=== PATIENT | male | born 1970 | race Caucasian/White ===

== ENCOUNTER 2016-04-23 12:33 | Emergency (ER) | payer SELFPAY ==
[2016-04-23] MEDS ORDERED: CLINDAMYCIN HCL 150 MG CAPSULE PO ONE (15:51)
--- NOTE | 2016-04-23 15:57 | ER Document Report ---
ED Skin Rash/Insect Bite/Abscs - General Chief Complaint: Rash Stated Complaint: POSSIBLE RASH Time seen by provider: 15:52 Mode of Arrival: Ambulatory Information source: Patient Notes: 45-year-old male presents to ED for a very bad skin rash to the abdomen bilateral sides and back a moderate rash to his legs and a mild rash to his arms. States he has had it for about 3 weeks TRAVEL OUTSIDE OF THE [place] IN LAST 30 DAYS: No - HPI Patient complains to provider of: Skin rash/lesion Onset: Other - 3 weeks Onset/Duration: Gradual, Worse Quality of pain: Other - Itches Severity: None Pain Level: Denies Skin Character: Rash Identify cause: No Exacerbated by: Denies Relieved by: Denies Similar symptoms previously: Yes Recently seen / treated by doctor: Yes - Related Data Allergies/Adverse Reactions: amoxicillin [Amoxicillin] Allergy (Verified 04/23/16 12:41) Penicillins Allergy (Verified 04/23/16 12:41) Past Medical History - General Information source: Patient - Social History Smoking Status: Former Smoker Cigarette use (# per day): No Chew tobacco use (# tins/day): No Frequency of alcohol use: None - 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 Drug Abuse: None Occupation: [employer] Lives with: Spouse/Significant other Family History: Arthritis, CAD, CVA, Hyperlipidemia, Hypertension, Malignancy - Past Medical History Cardiac Medical History: Reports: Hx Hypertension Pulmonary Medical History: Reports: None Denies: Hx Tuberculosis EENT Medical History: Reports: None Neurological Medical History: Reports: Hx Migraine Endocrine Medical History: Reports: None Renal/ Medical History: Reports: Hx Kidney Stones Malignancy Medical History: Reports None GI Medical History: Reports: Hx Gastroesophageal Reflux Disease Musculoskeltal Medical History: Reports Hx Musculoskeletal Trauma Skin Medical History: Reports Hx Cellulitis, Reports Hx MRSA Psychiatric Medical History: Reports: Hx Anxiety Traumatic Medical History: Reports: Hx Fractures Infectious Medical History: Reports: None Past Surgical History: Reports: Hx Cardiac Catheterization, Hx Oral Surgery - Jaw surgery, Hx Testicular Surgery. Denies: Hx Pacemaker - Immunizations Immunizations up to date: Yes Hx Diphtheria, Pertussis, Tetanus Vaccination: Yes Review of Systems - Review of Systems Constitutional: No symptoms reported EENT: No symptoms reported Cardiovascular: No symptoms reported Respiratory: No symptoms reported Gastrointestinal: No symptoms reported Genitourinary: No symptoms reported Male Genitourinary: No symptoms reported Musculoskeletal: No symptoms reported Skin: Rash Hematologic/Lymphatic: No symptoms reported Neurological/Psychological: No symptoms reported -: Yes All other systems reviewed and negative Physical Exam - Vital signs Vitals: Temp Pulse Resp BP Pulse Ox 97.9 F 84 20 147/103 H 95 04/23/16 12:43 04/23/16 12:43 04/23/16 12:43 04/23/16 12:43 04/23/16 12:43 Interpretation: Normal, Hypertensive - Blood pressure 147/103 has a history of blood pressure - General General appearance: Appears well, Alert - HEENT Head: Normocephalic, Atraumatic Eyes: Normal Pupils: PERRL - Respiratory Respiratory status: No respiratory distress Chest status: Nontender Breath sounds: Normal Chest palpation: Normal - Cardiovascular Rhythm: Regular Heart sounds: Normal auscultation Murmur: No - Abdominal Inspection: Normal Distension: No distension Bowel sounds: Normal Tenderness: Nontender Organomegaly: No organomegaly - Back Back: Normal, Nontender - Extremities General upper extremity: Normal inspection, Nontender, Normal color, Normal ROM , Normal temperature General lower extremity: Normal inspection, Nontender, Normal color, Normal ROM , Normal temperature, Normal weight bearing. No: David's sign - Neurological Neuro grossly intact: Yes Cognition: Normal Orientation: AAOx4 [place] Coma Scale Eye Opening: Spontaneous [place] Coma Scale Verbal: Oriented [place] Coma Scale Motor: Obeys Commands [place] Coma Scale Total: 15 Speech: Normal Motor strength normal: LUE, RUE, LLE, RLE Sensory: Normal - Psychological Associated symptoms: Normal affect, Normal mood - Skin Skin Temperature: Warm Skin Moisture: Dry Skin Color: Normal Location of irregularity: Abdomen, Chest, Back, Extremities Character of irregularity: Maculopapular, Vesicular, Erythematous, Urticarial Irregularity with: Tenderness Course - Vital Signs Vital signs: Temp Pulse Resp BP Pulse Ox 97.7 F 72 14 147/97 H 97 04/23/16 16:12 04/23/16 16:12 04/23/16 16:12 04/23/16 16:12 04/23/16 16:12 Discharge - Discharge Clinical Impression: Folliculitis Condition: Stable Disposition: HOME, SELF-CARE Instructions: Family Physicians / Practices Additional Instructions: Folliculitis You have a skin infection called folliculitis. This occurs when bacteria infect the hair follicles of the skin. Typically, redness and small pustules are found where hair shafts enter the skin. Allergy, surface irritation, shaving, and exposure to hot tubs predispose to folliculitis. The usual treatment is antibiotic ointment, sometimes combined with cortisone-type medication. Warm compresses are often used. If the infection has moved deeper into the skin, oral antibiotics may be necessary. To avoid future episodes of folliculitis, you must identify (if possible) the factors which allowed this infection to start. If you develop increasing pain, swelling, fever, or red streaks, call the doctor or return for re-evaluation. Clindamycin You have been given a prescription for the antibiotic clindamycin. It is often prescribed for infections in the mouth, such as dental infections or abscesses, and for skin infections due to MRSA. It's important that you take all the medication, unless instructed otherwise by your physician. Failure to complete the entire course can result in relapse of your condition. Common side effects of antibiotics include nausea, intestinal cramping, or diarrhea. Women may develop vaginal yeast infections, and babies can get yeast (thrush) in the mouth following the use of antibiotics. Contact your physician if you develop significant side effects from this medication. Allergy to this antibiotic can result in hives, wheezing, faintness, or itching. If symptoms of allergy occur, stop the medication and call the doctor. Soap Cleansing Gently wash the rash twice daily using a yellow Dial. Use warm water, rubbing gently until all debris, ooze, and crusting have been washed from the rash. Allow to dry briefly (about 10 minutes) after cleaning. Repeat this cleansing at least three times a day for the first two days and then once or twice a day. FOLLOW-UP CARE: If you have been referred to a physician for follow-up care, call the physician s office for an appointment as you were instructed or within the next two days. If you experience worsening or a significant change in your symptoms, notify the physician immediately or return to the Emergency Department at any time for re-evaluation. Please have your family doctor refer you to a desizing machine offbearer if this is not cleared up and about a week. I gave you list of local doctors if you do not have a family doctor. Prescriptions: Clindamycin HCl [Cleocin HCl] 300 mg PO QID 10 Days Forms: Elevated Blood Pressure, Return to Work
[2016-04-23 16:15] VITALS: BP 147/97
== END 2016-04-23 16:15 | disposition home or self-care (01) ==
LOC: ER 12:33
DX: L73.9 Follicular disorder, unspecified (principal); R21 Rash and other nonspecific skin eruption; Z87.891 Personal history of nicotine dependence
CPT/HCPCS: 99282

== ENCOUNTER 2016-05-01 11:57 | Emergency (ER) | payer SELFPAY ==
--- NOTE | 2016-05-01 12:16 | ER Document Report ---
ED Medical Screen (RME) - General Stated Complaint: BACK PAIN Time seen by provider: 12:15 Mode of Arrival: Ambulatory Information source: Patient Notes: 45-year-old male developed right sacroiliac area back pain without radiculopathy or saddle anesthesia last night. Movement makes it worse. No fever or chills. TRAVEL OUTSIDE OF THE [place] IN LAST 30 DAYS: No - Related Data Allergies/Adverse Reactions: amoxicillin [Amoxicillin] Allergy (Verified 05/01/16 12:13) Penicillins Allergy (Verified 05/01/16 12:13) Past Medical History - Past Medical History Cardiac Medical History: Reports: Hx Hypertension Pulmonary Medical History: Denies: Hx Tuberculosis Neurological Medical History: Reports: Hx Migraine Renal/ Medical History: Reports: Hx Kidney Stones GI Medical History: Reports: Hx Gastroesophageal Reflux Disease Musculoskeltal Medical History: Reports Hx Musculoskeletal Trauma Skin Medical History: Reports Hx Cellulitis, Reports Hx MRSA Psychiatric Medical History: Reports: Hx Anxiety Traumatic Medical History: Reports: Hx Fractures Past Surgical History: Reports: Hx Cardiac Catheterization, Hx Oral Surgery, Hx Testicular Surgery. Denies: Hx Pacemaker - Immunizations Immunizations up to date: Yes Hx Diphtheria, Pertussis, Tetanus Vaccination: Yes Physical Exam - Vital signs Vitals: Temp Pulse Resp BP Pulse Ox 97.7 F 66 18 163/109 H 97 05/01/16 12:00 05/01/16 12:00 05/01/16 12:00 05/01/16 12:00 05/01/16 12:00 Course - Vital Signs Vital signs: Temp Pulse Resp BP Pulse Ox 97.7 F 66 18 163/109 H 97 05/01/16 12:00 05/01/16 12:00 05/01/16 12:00 05/01/16 12:00 05/01/16 12:00
--- NOTE | 2016-05-01 12:43 | ER Document Report ---
ED General - General Chief Complaint: Low Back Pain Stated Complaint: BACK PAIN Time seen by provider: 12:41 Mode of Arrival: Ambulatory Notes: This is a 44-year-old male with a history of hypertension anxiety that presents today with low back pain. He states that last night around 2200. He walked home from a friend's house and was bending over to take off his shoes when he suddenly felt pain. Location is right lumbar area with no radiation 10 out of 10 with any movement. Denies nausea vomiting fever or chills. Patient denies bowel or bladder dysfunction. TRAVEL OUTSIDE OF THE [place] IN LAST 30 DAYS: No - Related Data Allergies/Adverse Reactions: amoxicillin [Amoxicillin] Allergy (Verified 05/01/16 12:13) Penicillins Allergy (Verified 05/01/16 12:13) Past Medical History - General Information source: Patient - Social History Smoking Status: Never Smoker Chew tobacco use (# tins/day): No Frequency of alcohol use: None Drug Abuse: None Family History: Arthritis, CAD, CVA, Hyperlipidemia, Hypertension, Malignancy Patient has suicidal ideation: No Patient has homicidal ideation: No - Past Medical History Cardiac Medical History: Reports: Hx Hypertension Pulmonary Medical History: Denies: Hx Tuberculosis Neurological Medical History: Reports: Hx Migraine Renal/ Medical History: Reports: Hx Kidney Stones GI Medical History: Reports: Hx Gastroesophageal Reflux Disease Musculoskeltal Medical History: Reports Hx Musculoskeletal Trauma Skin Medical History: Reports Hx Cellulitis, Reports Hx MRSA Psychiatric Medical History: Reports: Hx Anxiety Traumatic Medical History: Reports: Hx Fractures Past Surgical History: Reports: Hx Cardiac Catheterization, Hx Oral Surgery, Hx Testicular Surgery. Denies: Hx Pacemaker - Immunizations Immunizations up to date: Yes Hx Diphtheria, Pertussis, Tetanus Vaccination: Yes Review of Systems - Review of Systems Constitutional: denies: Chills, Fever EENT: denies: Blurred vision Cardiovascular: denies: Chest pain Genitourinary: Dysuria Musculoskeletal: See HPI Skin: No symptoms reported Hematologic/Lymphatic: No symptoms reported Neurological/Psychological: No symptoms reported Physical Exam - Vital signs Vitals: Temp Pulse Resp BP Pulse Ox 97.7 F 66 18 163/109 H 97 05/01/16 12:00 05/01/16 12:00 05/01/16 12:00 05/01/16 12:00 05/01/16 12:00 - General General appearance: Appears well, Alert - HEENT Head: Normocephalic, Atraumatic Eyes: Normal Conjunctiva: Normal - Respiratory Respiratory status: No respiratory distress Chest status: Nontender Breath sounds: Normal. No: Rales, Rhonchi, Stridor, Wheezing - Cardiovascular Rhythm: Regular Heart sounds: Normal auscultation - Abdominal Inspection: Normal Distension: No distension Bowel sounds: Normal Tenderness: Nontender - Back Back: Tender - Lumbar right paraspinal. No midline tenderness - Extremities General upper extremity: Normal inspection, Normal strength General lower extremity: Normal inspection - +2 dorsalis pedis bilaterally normal sensation bilaterally, Normal strength - Neurological Cognition: Normal. No: Confused - Psychological Associated symptoms: Normal affect, Normal mood - Skin Skin Temperature: Warm Skin Moisture: Dry Skin Color: Normal Course - Re-evaluation Re-evalutation: 05/01/16 13:03 Patient is given multiple opportunities to ask questions. X-ray images were shared with the patient. Patient stated that he would follow-up with primary care physician. Patient denied bowel or bladder dysfunction. - Vital Signs Vital signs: Temp Pulse Resp BP Pulse Ox 97.4 F 70 16 171/107 H 99 05/01/16 15:37 05/01/16 15:37 05/01/16 15:37 05/01/16 15:37 05/01/16 15:37 Discharge - Discharge Clinical Impression: Nephrolithiasis Back pain Qualifiers: Back pain location: low back pain Chronicity: acute Back pain laterality: right Sciatica presence: without sciatica Qualified Code(s): M54.5 - Low back pain Condition: Good Disposition: HOME, SELF-CARE Additional Instructions: Return to the emergency department if symptoms worsen. Follow-up with primary care physician. Prescriptions: Methocarbamol [Robaxin 750 mg Tablet] 750 mg PO Q6 PRN #10 tablet PRN Reason: Ondansetron [Zofran Odt 4 mg Tablet] 1 - 2 tab PO Q4H PRN #15 tab.rapdis PRN Reason: For Nausea/Vomiting Tamsulosin HCl [Flomax 0.4 mg Cap.sr] 0.4 mg PO DAILY #7 cap.sr.24h Referrals: [facility] [Provider Group] - Follow up as needed
[2016-05-01 14:52] LABS: APPEARANCE,URINE CLEAR; BILIRUBIN,URINE NEGATIVE (NEGATIVE); GLUCOSE, URINE NEGATIVE (NEGATIVE); KETONES,URINE NEGATIVE (NEGATIVE); LEUKOCYTE ESTERASE,URINE NEGATIVE (NEGATIVE); NITRITE,URINE NEGATIVE (NEGATIVE); PROTEIN,URINE NEGATIVE (NEGATIVE); URINE SPECIFIC GRAVITY 1.013; UROBILINOGEN,URINE NEGATIVE mg/dL (<2.0)
[2016-05-01 15:39] VITALS: BP 171/107
== END 2016-05-01 16:21 | disposition home or self-care (01) ==
LOC: ER 11:57
DX: N20.0 Calculus of kidney (principal); M54.5 Low back pain; R30.0 Dysuria; I10 Essential (primary) hypertension; Z88.0 Allergy status to penicillin; Z86.14 Personal history of Methicillin resistant Staphylococcus aureus infection
CPT/HCPCS: 72110; 81001; 99283

== ENCOUNTER 2016-07-18 21:06 | Emergency (ER) | payer OTHER ==
[2016-07-18] MEDS ORDERED: IBUPROFEN 800 MG TABLET PO ONE (22:32)
--- NOTE | 2016-07-18 22:32 | ER Document Report ---
ED Medical Screen (RME) - General Chief Complaint: Back Pain Stated Complaint: BACK PAIN Time seen by provider: 22:30 Mode of Arrival: Ambulatory Information source: Patient Notes: 46-year-old male presents to ED for pain between his shoulder blades. He states this started at work today when he was lifting a box of lettuce. He states while he was lifting the lettuce someone called him and he twisted causing his pain and his back. I have greeted and performed a rapid initial assessment of this patient. A comprehensive ED assessment and evaluation of the patient, analysis of test results and completion of medical decision making process will be conducted by an additional ED providers. TRAVEL OUTSIDE OF THE [place] IN LAST 30 DAYS: No - Related Data Allergies/Adverse Reactions: amoxicillin [Amoxicillin] Allergy (Verified 05/01/16 12:13) Penicillins Allergy (Verified 05/01/16 12:13) Past Medical History - Past Medical History Cardiac Medical History: Reports: Hx Hypertension Pulmonary Medical History: Denies: Hx Tuberculosis Neurological Medical History: Reports: Hx Migraine Renal/ Medical History: Reports: Hx Kidney Stones GI Medical History: Reports: Hx Gastroesophageal Reflux Disease Musculoskeltal Medical History: Reports Hx Musculoskeletal Trauma Skin Medical History: Reports Hx Cellulitis, Reports Hx MRSA Psychiatric Medical History: Reports: Hx Anxiety Traumatic Medical History: Reports: Hx Fractures Past Surgical History: Reports: Hx Cardiac Catheterization, Hx Oral Surgery, Hx Testicular Surgery. Denies: Hx Pacemaker - Immunizations Immunizations up to date: Yes Hx Diphtheria, Pertussis, Tetanus Vaccination: Yes Physical Exam - Vital signs Vitals: Temp Pulse Resp BP Pulse Ox 97.7 F 70 20 147/91 H 95 07/18/16 21:36 07/18/16 21:36 07/18/16 21:36 07/18/16 21:36 07/18/16 21:36 Course - Vital Signs Vital signs: Temp Pulse Resp BP Pulse Ox 97.7 F 70 20 147/91 H 95 07/18/16 21:36 07/18/16 21:36 07/18/16 21:36 07/18/16 21:36 07/18/16 21:36
[2016-07-19] MEDS ORDERED: CYCLOBENZAPRINE HCL 10 MG TABLET PO ONE ×2 (03:04→03:33)
--- NOTE | 2016-07-19 03:38 | ER Document Report ---
ED Medical Screen (RME) - General Mode of Arrival: Ambulatory TRAVEL OUTSIDE OF THE [place] IN LAST 30 DAYS: No - General Chief Complaint: Back Pain Stated Complaint: BACK PAIN Notes: Patient is a 46 DEPARTMENT complaining of back pain. Patient states that he was lifting a box on this for just his back and felt pain in between her shoulder blades. Patient admits to bilateral shoulder pain gets worse with movement. Has not taken anything for pain. Denies any urinary, stool incontinence, saddle anesthesia. Has been ambulatory since his accident. [facility] primary care History of hypertension. (ISABEL PARSON) - Related Data Allergies/Adverse Reactions: amoxicillin [Amoxicillin] Allergy (Verified 05/01/16 12:13) Penicillins Allergy (Verified 05/01/16 12:13) Past Medical History - Social History Chew tobacco use (# tins/day): No Frequency of alcohol use: None Drug Abuse: None - Past Medical History Cardiac Medical History: Reports: Hx Hypertension Pulmonary Medical History: Denies: Hx Tuberculosis Neurological Medical History: Reports: Hx Migraine Renal/ Medical History: Reports: Hx Kidney Stones. Denies: Hx Peritoneal Dialysis GI Medical History: Reports: Hx Gastroesophageal Reflux Disease Musculoskeltal Medical History: Reports Hx Musculoskeletal Trauma Skin Medical History: Reports Hx Cellulitis, Reports Hx MRSA Psychiatric Medical History: Reports: Hx Anxiety Traumatic Medical History: Reports: Hx Fractures Past Surgical History: Reports: Hx Cardiac Catheterization, Hx Oral Surgery, Hx Testicular Surgery. Denies: Hx Pacemaker - Immunizations Immunizations up to date: Yes Hx Diphtheria, Pertussis, Tetanus Vaccination: Yes Review of Systems - Review of Systems Musculoskeletal: See HPI -: Yes All other systems reviewed and negative Physical Exam - Back Back: Nontender. No: Deformity/step-off, CVA tenderness, Vertebra tenderness, Wounds - Extremities General upper extremity: Normal inspection, Nontender, Normal color, Normal ROM , Normal strength, Normal temperature General lower extremity: Normal inspection, Nontender, Normal color, Normal ROM , Normal strength, Normal temperature, Normal weight bearing. No: David's sign - Neurological Neuro grossly intact: Yes Cognition: Normal Orientation: AAOx4 [place] Coma Scale Eye Opening: Spontaneous [place] Coma Scale Verbal: Oriented [place] Coma Scale Motor: Obeys Commands [place] Coma Scale Total: 15 Motor strength normal: LUE, RUE, LLE, RLE Additional motor exam normals: Equal [employer]or [employer] Sensory: Normal - Skin Skin Temperature: Warm Skin Moisture: Dry Skin Color: Normal Skin Turgor: Elastic - Vital signs Vitals: Temp Pulse Resp BP Pulse Ox 97.7 F 70 20 147/91 H 95 07/18/16 21:36 07/18/16 21:36 07/18/16 21:36 07/18/16 21:36 07/18/16 21:36 - Extremities Notes: Pain to palpation of the bilateral trapezius muscles. (ISABEL PARSON) Course - Re-evaluation Re-evalutation: 07/19/16 03:34 Patient admits of muscle strain. Will treat with Motrin encouraged follow-up with primary care as needed. (ISABEL PARSON) - Vital Signs Vital signs: Temp Pulse Resp BP Pulse Ox 97.7 F 65 18 153/93 H 96 07/19/16 03:53 07/19/16 03:55 07/19/16 03:53 07/19/16 03:53 07/19/16 03:53 Doctor's Discharge - Discharge Clinical Impression: Muscle strain Condition: Good Disposition: HOME, SELF-CARE Instructions: Ice Packs ([facility]), Low Back Pain ([facility]), Muscle Strain ([facility]), Warm Packs ([facility]) Prescriptions: Cyclobenzaprine HCl [Flexeril 5 mg Tablet] 5 mg PO TID #6 tablet Ibuprofen [Motrin 600 Mg Tablet] 600 mg PO TID #15 tablet Forms: Elevated Blood Pressure Referrals: ANIRUDH COLE MD [ACTIVE STAFF] - Follow up as needed
[2016-07-19 03:57] VITALS: BP 153/93
== END 2016-07-19 03:58 | disposition home or self-care (01) ==
LOC: ER 21:06
DX: T14.8 Other injury of unspecified body region (principal); X50.0XXA Overexertion from strenuous movement or load, initial encounter; M25.511 Pain in right shoulder; M54.9 Dorsalgia, unspecified; Y99.0 Civilian activity done for income or pay; M25.512 Pain in left shoulder; I10 Essential (primary) hypertension; Z86.14 Personal history of Methicillin resistant Staphylococcus aureus infection; Z88.0 Allergy status to penicillin
CPT/HCPCS: 71020; 99283

== ENCOUNTER 2016-07-31 20:44 | Emergency (ER) | payer OTHER ==
[2016-07-31 21:06] VITALS: BP 162/108
== END 2016-08-01 02:36 | disposition left against medical advice (07) ==
LOC: ER 20:44
DX: Z53.9 Procedure and treatment not carried out, unspecified reason (principal); M25.562 Pain in left knee

== ENCOUNTER 2016-09-10 11:53 | Emergency (ER) | payer OTHER ==
[2016-09-10 12:04] VITALS: BP 169/100
[2016-09-10] MEDS ORDERED: IBUPROFEN 800 MG TABLET PO ONE (12:18)
[2016-09-10] MEDS ORDERED: MUPIROCIN 2% OINTMENT 22 GM TP ONE (12:18)
--- NOTE | 2016-09-10 12:22 | ER Document Report ---
ED Skin Rash/Insect Bite/Abscs - General Chief Complaint: Skin Problem Stated Complaint: POSSIBLE INSECT BITE RIGHT WRIST Time Seen by Provider: 09/10/16 12:10 Mode of Arrival: Ambulatory Information source: Patient Notes: She will female presents to ED for multiple open wounds to the right lateral wrist is noticed a day or so ago. He states he does not know if he had a bite or something in scratch that he does not remember. TRAVEL OUTSIDE OF THE [place] IN LAST 30 DAYS: No - HPI Patient complains to provider of: Other - Open infected areas to the right lateral wrist Onset: Other - A day or so Onset/Duration: Gradual Quality of pain: Burning Severity: Severe Pain Level: 5 Skin Character: Drainage, Erythema, Lesion, Tenderness Quality of rash: Painful Identify cause: No Exacerbated by: Movement Relieved by: Denies Similar symptoms previously: No Recently seen / treated by doctor: No - Related Data Allergies/Adverse Reactions: amoxicillin [Amoxicillin] Allergy (Verified 09/10/16 11:57) Penicillins Allergy (Verified 09/10/16 11:57) Past Medical History - General Information source: Patient - Social History Smoking Status: Never Smoker Cigarette use (# per day): No Chew tobacco use (# tins/day): No Smoking Education Provided: No Frequency of alcohol use: Rare Drug Abuse: None Occupation: [employer] Lives with: Alone Family History: Arthritis, CAD, COPD, CVA, Hyperlipidemia, Hypertension, Malignancy Patient has suicidal ideation: No Patient has homicidal ideation: No - Past Medical History Cardiac Medical History: Reports: Hx Coronary Artery Disease, Hx Hypertension Pulmonary Medical History: Reports: None EENT Medical History: Reports: None Neurological Medical History: Reports: Hx Migraine Endocrine Medical History: Reports: None Renal/ Medical History: Reports: Hx Kidney Stones Malignancy Medical History: Reports None GI Medical History: Reports: None, Hx Gastroesophageal Reflux Disease Musculoskeltal Medical History: Reports Hx Musculoskeletal Trauma Skin Medical History: Reports Hx Cellulitis, Reports Hx MRSA Psychiatric Medical History: Reports: Hx Anxiety Traumatic Medical History: Reports: Hx Fractures - Left arm Infectious Medical History: Reports: None Past Surgical History: Reports: Hx Cardiac Catheterization, Hx Oral Surgery, Hx Testicular Surgery - Immunizations Immunizations up to date: Yes Hx Diphtheria, Pertussis, Tetanus Vaccination: Yes Review of Systems - Review of Systems Constitutional: No symptoms reported EENT: No symptoms reported Cardiovascular: No symptoms reported Respiratory: No symptoms reported Gastrointestinal: No symptoms reported Genitourinary: No symptoms reported Male Genitourinary: No symptoms reported Musculoskeletal: No symptoms reported Skin: Lesions - Open draining honey crusted lesions Hematologic/Lymphatic: No symptoms reported Neurological/Psychological: No symptoms reported -: Yes All other systems reviewed and negative Physical Exam - Vital signs Vitals: Temp Pulse Resp BP Pulse Ox 99.3 F 98 20 169/100 H 95 09/10/16 12:02 09/10/16 12:02 09/10/16 12:02 09/10/16 12:02 09/10/16 12:02 Interpretation: Normal - General General appearance: Appears well, Alert - HEENT Head: Normocephalic, Atraumatic Eyes: Normal Pupils: PERRL - Respiratory Respiratory status: No respiratory distress Chest status: Nontender Breath sounds: Normal Chest palpation: Normal - Cardiovascular Rhythm: Regular Heart sounds: Normal auscultation Murmur: No - Abdominal Inspection: Normal Distension: No distension Bowel sounds: Normal Tenderness: Nontender Organomegaly: No organomegaly - Back Back: Normal, Nontender - Extremities General upper extremity: Normal inspection, Nontender, Normal color, Normal ROM , Normal temperature General lower extremity: Normal inspection, Nontender, Normal color, Normal ROM , Normal temperature, Normal weight bearing. No: David's sign - Neurological Neuro grossly intact: Yes Cognition: Normal Orientation: AAOx4 [place] Coma Scale Eye Opening: Spontaneous [place] Coma Scale Verbal: Oriented [place] Coma Scale Motor: Obeys Commands [place] Coma Scale Total: 15 Speech: Normal Motor strength normal: LUE, RUE, LLE, RLE Sensory: Normal - Psychological Associated symptoms: Normal affect, Normal mood - Skin Skin Temperature: Warm Skin Moisture: Dry Skin Color: Normal Irregularity with: Tenderness, Crusting - Open draining honey colored crusted lesions to the lateral right wrist Course - Vital Signs Vital signs: Temp Pulse Resp BP Pulse Ox 99.3 F 98 20 169/100 H 09/10/16 12:02 09/10/16 12:02 09/10/16 12:02 09/10/16 12:02 09/10/16 12:02 Discharge - Discharge Clinical Impression: Impetigo Disposition: HOME, SELF-CARE Instructions: Family Physicians / Practices, Use of [id number] Ibuprofen ([facility]) Additional Instructions: Impetigo You have a skin infection called impetigo. This infection is caused by germs growing between the skin layers. It spreads easily and is quite contagious. The usual treatment is with oral antibiotics, along with washing the sores and application of an antibiotic ointment. There's a new prescription antibiotic ointment which may allow some cases of impetigo to be treated without pills. Healing takes about a week. All involved areas should recover with no scarring. If there is significant worsening, or if new symptoms (such as dark urine, fever, chills, or red streaks) arise, call the doctor or return for re- examination. SOAP CLEANSING: Gently wash the wound daily using a mild soap (like Ivory, Phisoderm, Neutrogena). Use warm water, rubbing gently until all debris, ooze, and crusting have been washed from the wound. Allow to dry briefly (about 10 minutes) after cleaning. Repeat this cleansing at least three times a day for the first two days and then once or twice a day. ANTIBIOTIC OINTMENT PROTECTION: Your wounds are such that dressing them is not practical or optional. After cleansing, you should apply a thin coating of antibiotic ointment ( Bacitracin, not Neosporin) to the wounds at least three times daily. This lessens infection risk, and may decrease the amount of scarring. Use a q-tip or dull butter knife, not your finger, to apply this ointment. Any debris or ooze which builds up in the ointment should be gently rubbed off with a sterile gauze pad. Harder crusting may need to be gently scrubbed off with a clean wash cloth with soap and warm water, perhaps applying a warm, wet wash cloth to the wound for ten minutes first. Development of redness, severe itching, or blistering may mean allergy to the ointment. See the doctor. Bactroban Ointment Bactroban is very effective against the germs that cause infection within the skin. It's useful for impetigo and other superficial infections. Deeper infections require antibiotics by mouth or by shot. Apply the medicine three times a day for one week, or longer if your doctor has advised it. Stop the medicine and call your doctor if you develop large blisters, severe itching, increasing pain, swelling, fever, or spreading redness. FOLLOW-UP CARE: If you have been referred to a physician for follow-up care, call the physician s office for an appointment as you were instructed or within the next two days. If you experience worsening or a significant change in your symptoms, notify the physician immediately or return to the Emergency Department at any time for re-evaluation. Prescriptions: Mupirocin [Bactroban 2% Ointment 22 gm] 22 applic TP TID #1 tube Forms: Return to Work, Elevated Blood Pressure
== END 2016-09-10 12:41 | disposition home or self-care (01) ==
LOC: ER 11:53
DX: L01.00 Impetigo, unspecified (principal); I25.10 Atherosclerotic heart disease of native coronary artery without angina pectoris; I10 Essential (primary) hypertension; Z86.14 Personal history of Methicillin resistant Staphylococcus aureus infection; Z88.0 Allergy status to penicillin
CPT/HCPCS: 99283; J3490

== ENCOUNTER 2016-10-20 11:54 | Emergency (ER) | payer SELFPAY ==
--- NOTE | 2016-10-20 12:24 | ER Document Report ---
ED Medical Screen (RME) - General Chief Complaint: Flank Pain Stated Complaint: BACK PAIN Time Seen by Provider: 10/20/16 12:14 Notes: Patient says that he is having pain in his lower back for a few days and then yesterday, began having pain in the right hip. He has not vomited. Has had some diarrhea today. No blood present. Has a history of kidney stones and thinks that may be what is causing his pain. He has had lithotripsy for large stones in the past. Says his urine is yellow and dark on range. Denies fever. Denies abdominal pains. Patient had surgery for undescended testicles at about 7 years of age. History of hypertension, ran out of his lisinopril yesterday. TRAVEL OUTSIDE OF THE [place] IN LAST 30 DAYS: No - Related Data Allergies/Adverse Reactions: amoxicillin [Amoxicillin] Allergy (Verified 10/20/16 11:59) Penicillins Allergy (Verified 10/20/16 11:59) Past Medical History - Social History Chew tobacco use (# tins/day): No Frequency of alcohol use: Rare Drug Abuse: None - Past Medical History Cardiac Medical History: Reports: Hx Coronary Artery Disease, Hx Hypertension Pulmonary Medical History: Denies: Hx Tuberculosis Neurological Medical History: Reports: Hx Migraine Renal/ Medical History: Reports: Hx Kidney Stones. Denies: Hx Peritoneal Dialysis GI Medical History: Reports: Hx Gastroesophageal Reflux Disease Musculoskeltal Medical History: Reports Hx Musculoskeletal Trauma Skin Medical History: Reports Hx Cellulitis, Reports Hx MRSA Psychiatric Medical History: Reports: Hx Anxiety Traumatic Medical History: Reports: Hx Fractures Past Surgical History: Reports: Hx Cardiac Catheterization, Hx Oral Surgery, Hx Testicular Surgery. Denies: Hx Pacemaker - Immunizations Immunizations up to date: Yes Hx Diphtheria, Pertussis, Tetanus Vaccination: Yes Physical Exam - Vital signs Vitals: Temp Pulse Resp BP Pulse Ox 98.2 F 77 18 165/110 H 95 10/20/16 11:59 10/20/16 11:59 10/20/16 11:59 10/20/16 11:59 10/20/16 11:59 Course - Vital Signs Vital signs: Temp Pulse Resp BP Pulse Ox 98.2 F 77 18 165/110 H 95 10/20/16 11:59 10/20/16 11:59 10/20/16 11:59 10/20/16 11:59 10/20/16 11:59
[2016-10-20 13:01] LABS: ABSOLUTE BASOPHILS # (AUTO) 0.1 10^3/uL (0.0-0.2); ABSOLUTE EOSINOPHILS # (AUTO) 0.5 10^3/uL (0.0-0.6); ABSOLUTE LYMPHOCYTES (AUTO) 1.8 10^3/uL (0.5-4.7); ABSOLUTE MONOCYTES (AUTO) 0.6 10^3/uL (0.1-1.4); ABSOLUTE NEUT (AUTO) 5.3 10^3/uL (1.7-8.2); BASOPHILS % (AUTO) 0.7 % (0-2); EOSINOPHILS % (AUTO) 5.7 % (0-6); HEMOGLOBIN 13.8 g/dL (13.5-17.0); HGB HCT DIFFERENCE -0.6; LYMPHOCYTES % (AUTO) 22.4 % (13-45); MEAN CORPUSCULAR HEMOGLOBIN 27.8 pg (27.0-33.4); MEAN CORPUSCULAR HGB CONC 32.9 g/dL (32.0-36.0); MEAN CORPUSCULAR VOLUME 84 fl (80-97); MONOCYTES % (AUTO) 7.1 % (3-13); RED BLOOD COUNT 4.97 10^6/uL (4.35-5.55); SEGMENTED NEUTROPHILS % (AUTO) 64.1 % (42-78); WHITE BLOOD COUNT 8.2 10^3/uL (4.0-10.5)
[2016-10-20 13:03] LABS: APPEARANCE,URINE CLEAR; BILIRUBIN,URINE NEGATIVE (NEGATIVE); GLUCOSE, URINE NEGATIVE (NEGATIVE); KETONES,URINE NEGATIVE (NEGATIVE); LEUKOCYTE ESTERASE,URINE NEGATIVE (NEGATIVE); NITRITE,URINE NEGATIVE (NEGATIVE); PROTEIN,URINE NEGATIVE (NEGATIVE); URINE SPECIFIC GRAVITY 1.021; UROBILINOGEN,URINE NEGATIVE mg/dL (<2.0)
[2016-10-20] MEDS ORDERED: KETOROLAC TROMETHAMINE 60 MG/2 ML SDV IM ONE (13:05)
--- NOTE | 2016-10-20 13:07 | ER Document Report ---
ED General - General Chief Complaint: Flank Pain Stated Complaint: BACK PAIN Time Seen by Provider: 10/20/16 12:14 Mode of Arrival: Ambulatory Information source: Patient TRAVEL OUTSIDE OF THE [place] IN LAST 30 DAYS: No - HPI Patient complains to provider of: low back pain Onset: Other - 2-3 days Onset/Duration: Gradual Quality of pain: Achy Severity: Moderate Pain Level: 3 Associated symptoms: None Exacerbated by: Movement Relieved by: Denies Similar symptoms previously: Yes Recently seen / treated by doctor: No Notes: Patient is a 46-year-old male who presents to the emergency room complaining of low back pain has been bothering him for the past 2-3 days, he reports dark urine as well, with no dysuria, no vomiting, no fever but he did have some diarrhea without blood, patient reports a history of kidney stones with similar symptoms in the past, denies any injury or trauma - Related Data Allergies/Adverse Reactions: amoxicillin [Amoxicillin] Allergy (Verified 10/20/16 11:59) Penicillins Allergy (Verified 10/20/16 11:59) Past Medical History - General Information source: Patient - Social History Smoking Status: Never Smoker Chew tobacco use (# tins/day): No Frequency of alcohol use: Rare Drug Abuse: None Family History: Arthritis, CAD, CVA, Hyperlipidemia, Hypertension, Malignancy Patient has suicidal ideation: No Patient has homicidal ideation: No - Past Medical History Cardiac Medical History: Reports: Hx Coronary Artery Disease, Hx Hypertension Pulmonary Medical History: Denies: Hx Tuberculosis Neurological Medical History: Reports: Hx Migraine Renal/ Medical History: Reports: Hx Kidney Stones. Denies: Hx Peritoneal Dialysis GI Medical History: Reports: Hx Gastroesophageal Reflux Disease Musculoskeltal Medical History: Reports Hx Musculoskeletal Trauma Skin Medical History: Reports Hx Cellulitis, Reports Hx MRSA Psychiatric Medical History: Reports: Hx Anxiety Traumatic Medical History: Reports: Hx Fractures Past Surgical History: Reports: Hx Cardiac Catheterization, Hx Oral Surgery, Hx Testicular Surgery. Denies: Hx Pacemaker - Immunizations Immunizations up to date: Yes Hx Diphtheria, Pertussis, Tetanus Vaccination: Yes Review of Systems - Review of Systems Constitutional: No symptoms reported EENT: No symptoms reported Cardiovascular: No symptoms reported Respiratory: No symptoms reported Gastrointestinal: No symptoms reported Genitourinary: See HPI Male Genitourinary: No symptoms reported Musculoskeletal: See HPI Skin: No symptoms reported Hematologic/Lymphatic: No symptoms reported Neurological/Psychological: No symptoms reported -: Yes All other systems reviewed and negative Physical Exam - Vital signs Vitals: Temp Pulse Resp BP Pulse Ox 98.2 F 77 18 165/110 H 95 10/20/16 11:59 10/20/16 11:59 10/20/16 11:59 10/20/16 11:59 10/20/16 11:59 Interpretation: Normal - General General appearance: Appears well, Alert - HEENT Head: Normocephalic, Atraumatic Eyes: Normal Pupils: PERRL - Respiratory Respiratory status: No respiratory distress Chest status: Nontender Breath sounds: Normal Chest palpation: Normal - Cardiovascular Rhythm: Regular Heart sounds: Normal auscultation Murmur: No - Abdominal Inspection: Normal Distension: No distension Bowel sounds: Normal Tenderness: Nontender Organomegaly: No organomegaly - Back Back: Normal, Tender - Tenderness to palpate in lumbar paraspinal musculature - Extremities General upper extremity: Normal inspection, Nontender, Normal color, Normal ROM , Normal temperature General lower extremity: Normal inspection, Nontender, Normal color, Normal ROM , Normal temperature, Normal weight bearing. No: David's sign - Neurological Neuro grossly intact: Yes Cognition: Normal Orientation: AAOx4 [place] Coma Scale Eye Opening: Spontaneous [place] Coma Scale Verbal: Oriented [place] Coma Scale Motor: Obeys Commands [place] Coma Scale Total: 15 Speech: Normal Motor strength normal: LUE, RUE, LLE, RLE Sensory: Normal - Psychological Associated symptoms: Normal affect, Normal mood - Skin Skin Temperature: Warm Skin Moisture: Dry Skin Color: Normal Course - Re-evaluation Re-evalutation: 10/20/16 13:34 Laboratory findings were discussed with patient at bedside which are unremarkable, symptoms are consistent with low back pain, he was given a prescription for Naprosyn and advised to follow-up with a primary care provider or return if symptoms worsen, patient acknowledges understanding and agreement with this plan - Vital Signs Vital signs: Temp Pulse Resp BP Pulse Ox 98.2 F 77 18 165/110 H 95 10/20/16 11:59 10/20/16 11:59 10/20/16 11:59 10/20/16 11:59 10/20/16 11:59 - Laboratory Result Diagrams: 10/20/16 12:45 10/20/16 12:45 Laboratory results interpreted by me: 07/01/17 07/01/17 12:45 12:45 RDW 15.0 H Glucose 117 H Discharge - Discharge Clinical Impression: Low back pain Qualifiers: Chronicity: acute Back pain laterality: bilateral Sciatica presence: without sciatica Qualified Code(s): M54.5 - Low back pain Condition: Stable Disposition: HOME, SELF-CARE Instructions: Low Back Pain ([facility]) Additional Instructions: Follow up with your primary care provider in one to 2 days. Return to the emergency room immediately if symptoms worsen or any additional concerns. Prescriptions: Naproxen [Naprosyn 375 Mg Tablet] 375 mg PO BID #60 tablet Forms: Return to Work
[2016-10-20 13:16] LABS: ALANINE AMINOTRANSFERASE 29 U/L (21-72); ALBUMIN 3.8 g/dL (3.5-5.0); ALKALINE PHOSPHATASE 105 U/L (38-126); ANION GAP 12 (5-19); ASPARTATE AMINO TRANSFERASE 20 U/L (17-59); BILIRUBIN,DIRECT 0.3 mg/dL (0.0-0.4); BILIRUBIN,TOTAL 0.5 mg/dL (0.2-1.3); BLOOD UREA NITROGEN 12 mg/dL (7-20); CALCIUM 8.8 mg/dL (8.4-10.2); CARBON DIOXIDE 23 mmol/L (22-30); CHLORIDE 107 mmol/L (98-107); CREATININE RESULT 0.97 mg/dL (0.52-1.25); GLUCOSE 117 mg/dL (75-110); POTASSIUM 4.2 mmol/L (3.6-5.0); SODIUM 141.8 mmol/L (137-145); TOTAL PROTEIN 7.1 g/dL (6.3-8.2)
[2016-10-20 14:12] VITALS: BP 157/109
== END 2016-10-20 14:13 | disposition home or self-care (01) ==
LOC: ER 11:54
DX: M54.5 Low back pain (principal); R10.9 Unspecified abdominal pain; I25.10 Atherosclerotic heart disease of native coronary artery without angina pectoris; I10 Essential (primary) hypertension; Z88.0 Allergy status to penicillin; Z87.442 Personal history of urinary calculi; Z86.14 Personal history of Methicillin resistant Staphylococcus aureus infection
CPT/HCPCS: 99284; 96372; 36415; 83690; 85025; 80053; 81001; J1885

== ENCOUNTER 2016-12-30 15:23 | Emergency (ER) | payer OTHER ==
[2016-12-30] MEDS ORDERED: OXYCODONE-ACETAMINOPHEN 5-325 MG TABLET PO ONE (15:49)
--- NOTE | 2016-12-30 15:52 | ER Document Report ---
ED General - General Chief Complaint: Back Pain Stated Complaint: BACK INJURY Time Seen by Provider: 12/30/16 15:41 Notes: 46 yo male c/o pain to left back and ribs. 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 painful to deep breathe and move trunk. + shortness of breath due to the pain. no fever. no radiculopathy, paresthesia, bowel/bladder dysfunction. TRAVEL OUTSIDE OF THE [place] IN LAST 30 DAYS: No - HPI Onset/Duration: Sudden Quality of pain: Sharp Pain Level: 5 Associated symptoms: Shortness of breath Exacerbated by: Movement, Deep breathing Relieved by: Denies Similar symptoms previously: No Recently seen / treated by doctor: No - Related Data Allergies/Adverse Reactions: amoxicillin [Amoxicillin] Allergy (Verified 10/20/16 11:59) Penicillins Allergy (Verified 10/20/16 11:59) Past Medical History - General Information source: Patient - Social History Smoking Status: Never Smoker Chew tobacco use (# tins/day): No Frequency of alcohol use: None Drug Abuse: None Family History: Arthritis, CAD, CVA, Hyperlipidemia, Hypertension, Malignancy - Past Medical History Cardiac Medical History: Reports: Hx Coronary Artery Disease, Hx Hypertension Pulmonary Medical History: Denies: Hx Tuberculosis Neurological Medical History: Reports: Hx Migraine Renal/ Medical History: Reports: Hx Kidney Stones. Denies: Hx Peritoneal Dialysis GI Medical History: Reports: Hx Gastroesophageal Reflux Disease Musculoskeltal Medical History: Reports Hx Musculoskeletal Trauma Skin Medical History: Reports Hx Cellulitis, Reports Hx MRSA Psychiatric Medical History: Reports: Hx Anxiety Traumatic Medical History: Reports: Hx Fractures Past Surgical History: Reports: Hx Cardiac Catheterization, Hx Oral Surgery, Hx Testicular Surgery. Denies: Hx Pacemaker - Immunizations Immunizations up to date: Yes Hx Diphtheria, Pertussis, Tetanus Vaccination: Yes Review of Systems - Review of Systems Constitutional: No symptoms reported EENT: No symptoms reported Cardiovascular: No symptoms reported Respiratory: No symptoms reported Gastrointestinal: No symptoms reported Genitourinary: No symptoms reported Male Genitourinary: No symptoms reported Musculoskeletal: No symptoms reported Skin: No symptoms reported Hematologic/Lymphatic: No symptoms reported Neurological/Psychological: No symptoms reported -: Yes All other systems reviewed and negative Physical Exam - Vital signs Vitals: Temp Pulse Resp BP Pulse Ox 97.6 F 78 20 155/97 H 96 12/30/16 15:30 12/30/16 15:30 12/30/16 15:30 12/30/16 15:30 12/30/16 15:30 Interpretation: Normal - General General appearance: Appears well, Alert - HEENT Head: Normocephalic, Atraumatic Eyes: Normal Pupils: PERRL - Respiratory Respiratory status: No respiratory distress Chest status: Nontender Breath sounds: Normal Chest palpation: Normal - Cardiovascular Rhythm: Regular Heart sounds: Normal auscultation Murmur: No - Abdominal Inspection: Normal Distension: No distension Bowel sounds: Normal Tenderness: Nontender Organomegaly: No organomegaly - Back Back: Tender - focal tenderness left lateral chest wall - Extremities General upper extremity: Normal inspection, Nontender, Normal color, Normal ROM , Normal temperature General lower extremity: Normal inspection, Nontender, Normal color, Normal ROM , Normal temperature, Normal weight bearing. No: David's sign - Neurological Neuro grossly intact: Yes Cognition: Normal Orientation: AAOx4 [place] Coma Scale Eye Opening: Spontaneous [place] Coma Scale Verbal: Oriented [place] Coma Scale Motor: Obeys Commands [place] Coma Scale Total: 15 Speech: Normal Motor strength normal: LUE, RUE, LLE, RLE Sensory: Normal - Psychological Associated symptoms: Normal affect, Normal mood - Skin Skin Temperature: Warm Skin Moisture: Dry Skin Color: Normal Course - Re-evaluation Re-evalutation: 12/30/16 16:56 xray film and rad report reviewed. no pneumothorax or rib fracture. results reviewed with patient. will DC home with short RX pain medication, discussed importance of pulmonary toilet and deep breathing, and close follow up with primary care. pt agreeable with plan and stable for discharge - Vital Signs Vital signs: Temp Pulse Resp BP Pulse Ox 97.6 F 78 20 155/97 H 96 12/30/16 15:30 12/30/16 15:30 12/30/16 15:30 12/30/16 15:30 12/30/16 15:30 Discharge - Discharge Clinical Impression: Rib pain on left side Contusion of left chest wall Qualifiers: Encounter type: initial encounter Qualified Code(s): S20.212A - Contusion of left front wall of thorax, initial encounter Condition: Stable Disposition: HOME, SELF-CARE Instructions: Anti-Inflammatory Medication ([facility]), Chest Wall Pain ([facility]), Rib Contusion ([facility]), Oral Narcotic Medication ([facility]) Additional Instructions: Your xray is negative for collapsed lung or rib fracture I encourage you to breathe deep and cough when needed, breathe through the pain and avoid shallow breathing Take anti inflammatory medication and pain medication as prescribed Follow up with primary care for any fever, shortness of breath or cough Prescriptions: Ibuprofen [Motrin 800 Mg Tablet] 800 mg PO Q6H #20 tablet Oxycodone HCl/Acetaminophen [Percocet 5-325 mg Tablet] 1 - 2 tab PO ASDIR PRN # 15 tablet PRN Reason: Forms: Elevated Blood Pressure, Return to Work
--- NOTE | 2016-12-30 16:31 | RADIOLOGY REPORT (SQ) ---
EXAM DESCRIPTION: RIBS LEFT W/PA CHEST COMPLETED DATE/TIME: 12/30/2016 4:17 pm REASON FOR STUDY: fell onto left ribs, pain COMPARISON: None. TECHNIQUE: Frontal view of the chest and additional views of the left ribs acquired. NUMBER OF VIEWS: Four view. LIMITATIONS: None. FINDINGS: FRONTAL CXR: No pneumothorax. No pleural effusion. No atelectasis or infiltrates. RIBS: No displaced rib fractures. No lytic or blastic bony lesions. OTHER: No other significant finding. IMPRESSION: NO PNEUMOTHORAX. NO DISPLACED RIB FRACTURES. COMMENT: SITE OF TRAUMA/COMPLAINT MARKED/STAMP COMPLETED: NO. TECHNICAL DOCUMENTATION: JOB ID: [id number] [employer]- All Rights Reserved
[2016-12-30 17:07] VITALS: BP 165/95
== END 2016-12-30 17:07 | disposition home or self-care (01) ==
LOC: ER 15:23
DX: S20.212A Contusion of left front wall of thorax, initial encounter (principal); R07.81 Pleurodynia; M54.9 Dorsalgia, unspecified; R06.02 Shortness of breath; W19.XXXA Unspecified fall, initial encounter; Z88.0 Allergy status to penicillin; Z87.442 Personal history of urinary calculi; Z86.14 Personal history of Methicillin resistant Staphylococcus aureus infection
CPT/HCPCS: 99283

== ENCOUNTER 2017-03-28 09:24 | Emergency (ER) | payer OTHER ==
[2017-03-28] MEDS ORDERED: CYCLOBENZAPRINE HCL 10 MG TABLET PO ONE (09:54)
[2017-03-28 10:47] LABS: APPEARANCE,URINE CLEAR; BILIRUBIN,URINE NEGATIVE (NEGATIVE); GLUCOSE, URINE NEGATIVE (NEGATIVE); KETONES,URINE NEGATIVE (NEGATIVE); LEUKOCYTE ESTERASE,URINE NEGATIVE (NEGATIVE); NITRITE,URINE NEGATIVE (NEGATIVE); PROTEIN,URINE NEGATIVE (NEGATIVE); URINE SPECIFIC GRAVITY 1.021
--- NOTE | 2017-03-28 11:07 | ER Document Report ---
ED General - General Chief Complaint: Low Back Pain Stated Complaint: BACK PAIN Time Seen by Provider: 03/28/17 09:53 Mode of Arrival: Ambulatory Information source: Patient Notes: Patient is a 46-year-old male who presents to the ER today for right sided back pain 3 days, cough, runny nose 3 days and coughing up "streaks" of blood once today. Patient states that he has been coughing quite a bit and thinks that "I just irritated everything." He denies use of blood thinners. He admits to chronic back pain, but states that it hurts in a different way on the right side now. He denies any history of kidney stones or radiation of the pain anywhere else. He denies any loss of bladder or bowel function, numbness or tingling. He denies fever or chills that he is noticed. He denies shortness of breath or chest pain. TRAVEL OUTSIDE OF THE [place] IN LAST 30 DAYS: No - Related Data Allergies/Adverse Reactions: amoxicillin [Amoxicillin] Allergy (Verified 03/28/17 09:27) Penicillins Allergy (Verified 03/28/17 09:27) Past Medical History - General Information source: Patient - Social History Smoking Status: Never Smoker Chew tobacco use (# tins/day): No Frequency of alcohol use: None Drug Abuse: None Family History: Arthritis, CAD, CVA, Hyperlipidemia, Hypertension, Malignancy Patient has suicidal ideation: No Patient has homicidal ideation: No - Past Medical History Cardiac Medical History: Reports: Hx Coronary Artery Disease, Hx Hypertension Pulmonary Medical History: Denies: Hx Tuberculosis Neurological Medical History: Reports: Hx Migraine Renal/ Medical History: Reports: Hx Kidney Stones. Denies: Hx Peritoneal Dialysis GI Medical History: Reports: Hx Gastroesophageal Reflux Disease Musculoskeltal Medical History: Reports Hx Musculoskeletal Trauma Skin Medical History: Reports Hx Cellulitis, Reports Hx MRSA Psychiatric Medical History: Reports: Hx Anxiety Traumatic Medical History: Reports: Hx Fractures Past Surgical History: Reports: Hx Cardiac Catheterization, Hx Oral Surgery, Hx Testicular Surgery. Denies: Hx Pacemaker - Immunizations Immunizations up to date: Yes Hx Diphtheria, Pertussis, Tetanus Vaccination: Yes Review of Systems - Review of Systems Constitutional: No symptoms reported EENT: See HPI Cardiovascular: No symptoms reported Respiratory: See HPI Gastrointestinal: No symptoms reported Genitourinary: No symptoms reported Male Genitourinary: No symptoms reported Musculoskeletal: See HPI Skin: No symptoms reported Hematologic/Lymphatic: No symptoms reported Neurological/Psychological: No symptoms reported Physical Exam - Vital signs Vitals: Temp Pulse Resp BP Pulse Ox 98.2 F 96 16 176/98 H 93 03/28/17 09:29 03/28/17 09:29 03/28/17 09:29 03/28/17 09:29 03/28/17 09:29 - Notes Notes: PHYSICAL EXAMINATION: GENERAL: Well-appearing and in no acute distress. HEAD: Atraumatic, normocephalic. EYES: Pupils equal round and reactive to light, extraocular movements intact, sclera anicteric, conjunctiva are normal. ENT: ear canals without erythema or foreign body, TMs pearly luna with good bony landmarks, nares patent, oropharynx clear without exudates. Moist mucous membranes. NECK: Normal range of motion, supple without lymphadenopathy LUNGS: CTAB and equal. No wheezes rales or rhonchi. HEART: Regular rate and rhythm without murmurs ABDOMEN: Soft, no tenderness. No guarding, no rebound BACK: right lumbar tenderness, no vertebral tenderness, normal ROM GI/: no CVA tenderness EXTREMITIES: Normal range of motion, no pitting edema. No cyanosis. NEUROLOGICAL: Cranial nerves grossly intact. Normal sensory/motor exams. PSYCH: Normal mood, normal affect. SKIN: Warm, Dry, normal turgor, no rashes or lesions noted Course - Re-evaluation Re-evalutation: 03/28/17 11:05 Influenza and urinalysis negative. I will treat patient with muscle relaxers for his back pain and give him some cough medication. He has had no hemoptysis here. - Vital Signs Vital signs: Temp Pulse Resp BP Pulse Ox 98.2 F 96 16 176/98 H 93 03/28/17 09:29 03/28/17 09:29 03/28/17 09:29 03/28/17 09:29 03/28/17 09:29 - Laboratory Laboratory results interpreted by me: 03/28/17 10:16 Urine Urobilinogen 4.0 H Discharge - Discharge Clinical Impression: Cough Right low back pain Qualifiers: Chronicity: acute Sciatica presence: without sciatica Qualified Code(s): M54.5 - Low back pain Condition: Stable Disposition: HOME, SELF-CARE Instructions: Warm Packs ([facility]) Additional Instructions: Return immediately for any new or worsening symptoms. Follow up with primary care provider, call tomorrow to make followup appointment. Prescriptions: Hydrocodone Bit/Homatropine [Hycodan Syrup 5-1.5 mg/5 ml Ud Cup] 5 ml PO Q4HP PRN #120 ml PRN Reason: Cyclobenzaprine HCl [Flexeril 10 mg Tablet] 10 mg PO TIDP PRN #30 tab PRN Reason: Forms: Return to Work
[2017-03-28 11:36] VITALS: BP 176/119
== END 2017-03-28 11:35 | disposition home or self-care (01) ==
LOC: ER 09:24
DX: M54.5 Low back pain (principal); G89.29 Other chronic pain; R04.2 Hemoptysis; R09.89 Other specified symptoms and signs involving the circulatory and respiratory systems; I25.10 Atherosclerotic heart disease of native coronary artery without angina pectoris; I10 Essential (primary) hypertension; Z86.14 Personal history of Methicillin resistant Staphylococcus aureus infection; Z88.0 Allergy status to penicillin
CPT/HCPCS: 81001; 87804; 99283

== ENCOUNTER 2017-06-25 20:12 | Emergency (ER) | payer MEDICAID, OTHER ==
[2017-06-25 20:24] VITALS: BP 168/99
--- NOTE | 2017-06-25 22:03 | ER Document Report ---
ED Fall - General Chief Complaint: Fall Injury Stated Complaint: RT SIDE BACK/RIB PAIN Time Seen by Provider: 06/25/17 21:37 Mode of Arrival: Ambulatory Information source: Patient Notes: 47-year-old male presents to ED For complaint of right lateral rib pain. He states he was helping someone move and he fell down the stairs landing on his back. Patient refuses Tylenol or Motrin at this time. He is able to speak in full sentences walk with a steady even gait. Patient denies shortness of breath at this time. TRAVEL OUTSIDE OF THE [place] IN LAST 30 DAYS: No - HPI Occurred: Yesterday Where: Outdoors Context: Tripped, Fell from standing Associated symptoms: None Location of injury/pain: Other - Right lateral ribs Quality of pain: Sharp Severity: Severe Pain Level: 5 - Related data Allergies/Adverse Reactions: amoxicillin [Amoxicillin] Allergy (Verified 03/28/17 09:27) Penicillins Allergy (Verified 03/28/17 09:27) Past Medical History - General Information source: Patient - Social History Smoking Status: Never Smoker Cigarette use (# per day): No Chew tobacco use (# tins/day): No Smoking Education Provided: No Frequency of alcohol use: Occasional Drug Abuse: None Occupation: [employer] Lives with: Spouse/Significant other Family History: Arthritis, CAD, CVA, Hyperlipidemia, Hypertension, Malignancy. denies: COPD, DM, Thyroid Disfunction Patient has suicidal ideation: No Patient has homicidal ideation: No - Past Medical History Cardiac Medical History: Reports: Hx Hypertension Pulmonary Medical History: Reports: None EENT Medical History: Reports: None Neurological Medical History: Reports: None Endocrine Medical History: Reports: None Renal/ Medical History: Reports: Hx Kidney Stones Malignancy Medical History: Reports None GI Medical History: Reports: Hx Gastroesophageal Reflux Disease Musculoskeltal Medical History: Reports Hx Musculoskeletal Trauma Skin Medical History: Reports Hx Cellulitis, Reports Hx MRSA Psychiatric Medical History: Reports: Hx Anxiety, Hx Depression Traumatic Medical History: Reports: Hx Fractures - Arm, jaw Infectious Medical History: Reports: None Past Surgical History: Reports: Hx Cardiac Catheterization, Hx Oral Surgery - Fractured jaw plates in jaw, Hx Testicular Surgery - Immunizations Immunizations up to date: Yes Hx Diphtheria, Pertussis, Tetanus Vaccination: Yes Review of Systems - Review of Systems Notes: Constitutional: [PRESENT: as per HPI. ABSENT: chills, fever(s), headache(s), weight gain, weight loss] Eyes: [ABSENT: visual disturbances] Ears: [ABSENT: hearing changes] Cardiovascular: [ABSENT: chest pain, dyspnea on exertion, edema, orthropnea, palpitations] Respiratory: [ABSENT: cough, hemoptysis] pain with deep breaths to the right lateral ribs Gastrointestinal: [ABSENT: abdominal pain, constipation, diarrhea, hematemesis, hematochezia, nausea, vomiting] Genitourinary: [ABSENT: dysuria, hematuria] Musculoskeletal: Right lateral rib pain Integumentary: Bruising to right lateral rib area Neurological: [ABSENT: abnormal gait, abnormal speech, confusion, dizziness, focal weakness, syncope] Psychiatric: [ABSENT: anxiety, depression, homicidal ideation, suicidal ideation ] Endocrine: [ABSENT: cold intolerance, heat intolerance, menstrual abnormalities , polydipsia, polyuria] Hematologic/Lymphatic: [ABSENT: easy bleeding, easy bruising, lymphadenopathy] Physical Exam - Vital signs Vitals: Temp Pulse Resp BP Pulse Ox 97.7 F 72 20 168/99 H 98 06/25/17 20:22 06/25/17 20:22 06/25/17 20:22 06/25/17 20:22 06/25/17 20:22 - Notes Notes: PHYSICAL EXAMINATION: GENERAL: Well-appearing, well-nourished and in no acute distress. HEAD: Atraumatic, normocephalic. EYES: Pupils equal round and reactive to light, extraocular movements intact, sclera anicteric, conjunctiva are normal. ENT: Nares patent, oropharynx clear without exudates. Moist mucous membranes. NECK: Normal range of motion, supple without lymphadenopathy LUNGS: Breath sounds clear to auscultation bilaterally and equal. No wheezes rales or rhonchi. Pain with deep respiration to the right lateral ribs HEART: Regular rate and rhythm without murmurs ABDOMEN: Soft, nontender, nondistended abdomen. No guarding, no rebound. No masses appreciated. Musculoskeletal: Normal range of motion, no pitting or edema. No cyanosis. Pain to the right lateral ribs NEUROLOGICAL: Cranial nerves grossly intact. Normal speech, normal gait. Normal sensory, motor exams PSYCH: Normal mood, normal affect. SKIN: Warm, Dry, normal turgor, no rashes or lesions noted. Ecchymosis to the right lateral ribs area Course - Re-evaluation Re-evalutation: 06/25/17 23:53 Discussed x-rays with patient and written report of x-rays given to patient. Patient was discharged home with instructions for ice and warm packs to the area. He was also discharged home with a [place] dispense pack for the pain to the ribs. Patient was encouraged to take deep breaths frequently to prevent pneumonia from his rib contusions. There are no broken ribs. Patient was encouraged to follow-up with his primary doctor for his elevated blood pressures. He states he takes lisinopril and did take it tonight. - Vital Signs Vital signs: Temp Pulse Resp BP Pulse Ox 97.7 F 72 20 168/99 H 98 06/25/17 20:22 06/25/17 20:22 06/25/17 20:22 06/25/17 20:22 06/25/17 20:22 - Diagnostic Test Radiology reviewed: Image reviewed, Reports reviewed Discharge - Discharge Clinical Impression: Contusion of rib on right side Qualifiers: Encounter type: initial encounter Qualified Code(s): S20.211A - Contusion of right front wall of thorax, initial encounter HTN (hypertension) Qualifiers: Hypertension type: unspecified Qualified Code(s): I10 - Essential (primary) hypertension Condition: Stable Disposition: HOME, SELF-CARE Additional Instructions: Rib Contusion You have been diagnosed as having bruised ribs. It will usually take a few weeks for these injured ribs to heal. You should cough or take a deep breath at least every hour or two to prevent lung complications. You should not engage in any strenuous physical activity until released by your physician. The usual rule is "if it hurts, don' t do it." Return if you develop any of the following: (1) Fever or chills. (2) Persistent cough, coughing up blood, or shortness of breath. (3) Increasing pain. (4) Weakness, lightheadedness, or fainting. USE OF TYLENOL (ACETAMINOPHEN): Acetaminophen may be taken for pain relief or fever control. It's much safer than aspirin, offering a wider range of "safe" dosages. It is safe during . Some brand names are Tylenol, Panadol, Datril, Anacin 3, Tempra, and Liquiprin. Acetaminophen can be repeated every four hours. The following are maximum recommended dosages: WEIGHT Dose Drops Elixir Chewable( 80mg) (LBS.) drprs=droppers tsp=teaspoon 6 40 mg 0.4 ml (1/2) 6-11 80 mg 0.8 ml (full) tsp 1 tab 12-16 120 mg 1 1/2 drprs 3/4 tsp 1 1/2 tabs 17-23 160 mg 2 drprs 1 tsp 2 tabs 24-30 240 mg 3 drprs 1 1/2 tsp 3 tabs 30-35 320 mg 2 tsp 4 tabs 36-41 360 mg 2 1/4 tsp 4 1/2 tabs 42-47 400 mg 2 1/2 tsp 5 tabs 48-53 480 mg 3 tsp 6 tabs 54-59 520 mg 3 1/4 tsp 6 1/2 tabs 60-64 560 mg 3 1/2 tsp 7 tabs 65-70 600 mg 3 3/4 tsp 7 1/2 tabs 71-76 640 mg 4 tsp 8 tabs 77-82 720 mg 4 1/2 tsp 9 tabs 83-88 800 mg 5 tsp 10 tabs >89 pounds or adults 650 mg to 900 mg Acetaminophen can be repeated every four hours. Maximum dose not to exceed 4000 mg a day. These maximum recommended dosages are slightly higher than the dosages written on the product container, but these dosages are very safe and below the toxic dosage for acetaminophen. ICE PACKS: Apply ice packs frequently against the painful area. Many different schedules are recommended, such as "20 minutes on, 20 minutes off" or "one hour ice, two hours rest." If you need to work, you may need to go longer between ice treatments. You should plan to have the area ice packed AT LEAST one fourth of the time. The ice should be applied over the wrap, tape, or splint, or over a layer of cloth -- not directly against the skin. Some ice bags have a built-in cloth and can be put directly on the skin. WARM PACKS: After approximately two days, apply gentle heat (such as a heating pad or hot water bottle) for about 20 to 30 minutes about every two hours -- at least four times daily. Warmth and elevation will help you make a more rapid recovery , and will ease the pain considerably. Do not use HOT heat, and never apply heat for longer than 30 minutes. The continuous heat can invisibly damage skin and muscles -- even when no burn is seen on the surface. Damaged muscles can make you MORE sore. Oral Narcotic Medication You have been given a VISEO dispense pack for pain control. This medication is a narcotic. It's best taken with food, as nausea can result if taken on an empty stomach. Don't operate machinery or drive within six hours of taking this medication. Do not combine this medicine with alcohol, or with any medication which can cause sedation (such as cold tablets or sleeping pills) unless you get permission from the physician. Narcotics tend to cause constipation. If possible, drink plenty of fluids and eat a diet high in fiber and fruits. FOLLOW-UP CARE: If you have been referred to a physician for follow-up care, call the physician s office for an appointment as you were instructed or within the next two days. If you experience worsening or a significant change in your symptoms, notify the physician immediately or return to the Emergency Department at any time for re-evaluation. Forms: Elevated Blood Pressure, Return to Work
--- NOTE | 2017-06-25 23:43 | RADIOLOGY REPORT (SQ) ---
EXAM DESCRIPTION: RIBS RIGHT W/PA CHEST COMPLETED DATE/TIME: 06/25/2017 10:09 pm REASON FOR STUDY: Fall pain to right lateral ribs COMPARISON: None. TECHNIQUE: Frontal view of the chest and additional views of the right ribs acquired. NUMBER OF VIEWS: Three view. LIMITATIONS: None. FINDINGS: FRONTAL CXR: No pneumothorax. No pleural effusion. No atelectasis or infiltrates. RIBS: No displaced rib fractures. No lytic or blastic bony lesions. OTHER: No other significant finding. IMPRESSION: NO PNEUMOTHORAX. NO DISPLACED RIB FRACTURES. COMMENT: SITE OF TRAUMA/COMPLAINT MARKED/STAMP COMPLETED: Yes TECHNICAL DOCUMENTATION: JOB ID: [id number] [place]-72 2010 [employer]- All Rights Reserved Reading location - IP/workstation name: [email or web address]
[2017-06-25] MEDS ORDERED: HYDROCODONE/ACETAMINOPHEN 5-325 MG (6 TAB/ER DISP) PO PRN (23:51)
== END 2017-06-26 00:08 | disposition home or self-care (01) ==
LOC: ER 20:12
DX: S20.211A Contusion of right front wall of thorax, initial encounter (principal); I10 Essential (primary) hypertension; M54.9 Dorsalgia, unspecified; R07.81 Pleurodynia; W10.9XXA Fall (on) (from) unspecified stairs and steps, initial encounter
CPT/HCPCS: 99283

== ENCOUNTER 2017-07-02 13:50 | Emergency (ER) | payer SELFPAY ==
[2017-07-02 13:59] VITALS: BP 173/97
--- NOTE | 2017-07-02 14:53 | ER Document Report ---
HPI - HPI Patient complains to provider of: back pain Onset: Last week Onset/Duration: Persistent Quality of pain: Achy Pain Level: 5 Context: Patient states that he was helping a friend move and lost his balance hitting his ribs on a rail. Patient complains of continued rib tenderness. Patient does report mild cough. Patient denies any urinary symptoms. Patient also states he has a history of hypertension but ran out of his blood pressure medicine 1 week ago. Patient denies any abdominal pain, chest pain or headache. Associated Symptoms: Nonproductive cough, Other - right posterior rib pain. denies: Productive cough, Drooling, Headache, Vomiting Exacerbated by: Movement Relieved by: Denies Similar symptoms previously: Yes Recently seen / treated by doctor: Yes - ROS ROS below otherwise negative: Yes Systems Reviewed and Negative: Yes All other systems reviewed and negative - CONSTITUTIONAL Constitutional: DENIES: Fever, Chills - EENT EENT: DENIES: Sore Throat, Ear Pain, Eye problems - NEURO Neurology: DENIES: Headache, Weakness, Vision blurred, Dizzinesss / Vertigo - CARDIOVASCULAR Cardiovascular: DENIES: Chest pain - RESPIRATORY Respiratory: REPORTS: Coughing. DENIES: Trouble Breathing - GASTROINTESTINAL Gastrointestinal: DENIES: Abdominal Pain, Nausea, Patient vomiting, Black / Bloody Stools - URINARY Urinary: DENIES: Dysuria, Urgency, Frequency - MUSCULOSKELETAL Musculoskeletal: REPORTS: Back Pain. 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 denies: COPD, DM, Thyroid Disfunction Patient has suicidal ideation: No Patient has homicidal ideation: No - Past Medical History Cardiac Medical History: Reports: Hx Hypertension Pulmonary Medical History: Denies: Hx Tuberculosis Neurological Medical History: Reports: Hx Migraine Renal/ Medical History: Reports: Hx Kidney Stones. Denies: Hx Peritoneal Dialysis GI Medical History: Reports: Hx Gastroesophageal Reflux Disease Musculoskeltal Medical History: Reports Hx Musculoskeletal Trauma Skin Medical History: Reports Hx Cellulitis, Reports Hx MRSA Psychiatric Medical History: Reports: Hx Anxiety, Hx Depression Traumatic Medical History: Reports: Hx Fractures - Arm, jaw Past Surgical History: Reports: Hx Cardiac Catheterization, Hx Oral Surgery - Fractured jaw plates in jaw, Hx Testicular Surgery - Immunizations Immunizations up to date: Yes Hx Diphtheria, Pertussis, Tetanus Vaccination: Yes Vertical Provider Document - CONSTITUTIONAL Agree With Documented VS: Yes Exam Limitations: No Limitations General Appearance: WD/WN, No Apparent Distress - INFECTION CONTROL TRAVEL OUTSIDE OF THE [place] IN LAST 30 DAYS: No - HEENT HEENT: Atraumatic, Normocephalic - NECK Neck: Normal Inspection, Supple - RESPIRATORY Respiratory: Breath Sounds Normal, No Respiratory Distress. negative: Rales, Rhonchi, Wheezing O2 Sat by Pulse Oximetry: 93 - CARDIOVASCULAR Cardiovascular: Regular Rate, Regular Rhythm - GI/ABDOMEN Gastrointestinal: Abdomen Soft - BACK Back: Abnormal Inspection - Right lower thoracic rib tenderness, no subcutaneous emphysema, no crepitus, no ecchymosis. - MUSCULOSKELETAL/EXTREMETIES Musculoskeletal/Extremeties: YANETH AGUILAR - NEURO Level of Consciousness: Awake, Alert, Appropriate Motor/Sensory: No Motor Deficit - DERM Integumentary: Warm, Dry, No Rash Course - Re-evaluation Re-evalutation: 07/02/17 15:40 Controlled substance database reviewed. The patient presents with low back pain without signs of spinal cord compression, cauda equina syndrome, infection , aneurysm, or other serious etiology. The patient is neurologically intact. Given the extremely risk of these diagnoses further testing and evaluation for these possibilities does not appear to be indicated at this time. Patient has been instructed to return if the symptoms worsen or change in any way. - Vital Signs Vital signs: Temp Pulse Resp BP Pulse Ox 97.6 F 72 22 H 173/97 H 93 07/02/17 13:54 07/02/17 13:54 07/02/17 13:54 07/02/17 13:54 07/02/17 13:54 - Diagnostic Test Radiology reviewed: Image reviewed, Reports reviewed Discharge - Discharge Clinical Impression: Rib pain on right side HTN (hypertension) Qualifiers: Hypertension type: unspecified Qualified Code(s): I10 - Essential (primary) hypertension Condition: Stable Disposition: HOME, SELF-CARE Instructions: Chest Wall Pain ([facility]), High Blood Pressure, Requiring Treatment ( [facility]), Muscle Strain ([facility]) Additional Instructions: Return immediately for any new or worsening symptoms Followup with your primary care provider, call tomorrow to make a followup appointment Follow-up with a primary doctor to refill your blood pressure medications Prescriptions: Cyclobenzaprine HCl [Flexeril 10 Mg Tablet] 10 mg PO TID #15 tablet Lisinopril 10 mg PO DAILY #10 tablet Forms: Elevated Blood Pressure, Return to Work Referrals: [facility] [Provider Group] - Follow up as needed [facility] [Provider Group] - Follow up as needed
[2017-07-02] MEDS ORDERED: ACETAMINOPHEN 325 MG TABLET PO ONE (14:54)
[2017-07-02] MEDS ORDERED: LISINOPRIL 10 MG TABLET PO ONE (14:56)
--- NOTE | 2017-07-02 15:25 | RADIOLOGY REPORT (SQ) ---
EXAM DESCRIPTION: CHEST PA/LAT COMPLETED DATE/TIME: 07/02/2017 3:09 pm REASON FOR STUDY: cough, rib pain COMPARISON: 07/18/2016 EXAM PARAMETERS: NUMBER OF VIEWS: two views TECHNIQUE: Digital Frontal and Lateral radiographic views of the chest acquired. RADIATION DOSE: NA LIMITATIONS: none FINDINGS: LUNGS AND PLEURA: No opacities, masses or pneumothorax. No pleural effusion. MEDIASTINUM AND HILAR STRUCTURES: No masses or contour abnormalities. HEART AND VASCULAR STRUCTURES: Heart normal size. No evidence for failure. BONES: No acute findings. HARDWARE: None in the chest. OTHER: No other significant finding. IMPRESSION: NO SIGNIFICANT RADIOGRAPHIC FINDING IN THE CHEST. TECHNICAL DOCUMENTATION: JOB ID: [id number] [employer]- All Rights Reserved Reading location - IP/workstation name: [email or web address]
[2017-07-02] MEDS ORDERED: LIDOCAINE 5% (700 MG) TRANSDERMAL ADH..PATCH TP ONE (15:40)
== END 2017-07-02 16:08 | disposition home or self-care (01) ==
LOC: ER 13:50
DX: R07.81 Pleurodynia (principal); W22.8XXA Striking against or struck by other objects, initial encounter; R05 Cough; I10 Essential (primary) hypertension
CPT/HCPCS: 71046; 99283

== ENCOUNTER 2017-11-25 21:58 | Emergency (ER) | payer SELFPAY ==
[2017-11-25] MEDS ORDERED: ASPIRIN 81 MG TABLET, CHEWABLE PO ONE (23:07)
--- NOTE | 2017-11-25 23:13 | ER Document Report ---
ED Medical Screen (RME) - General Chief Complaint: Legs swelling/ pain in calf; L wrist pain s/p fall Stated Complaint: SWELLING IN FEET AND LEGS Time Seen by Provider: 11/25/17 22:54 Mode of Arrival: Wheelchair Information source: Patient Notes: Patient is a 47-year-old male who presents with multiple complaints today. Patient reports bilateral lower extremity swelling, worse to the right side 1 week. Patient has associated shortness of breath and sharp pains to the entire right side of his body from his arm down his torso into his leg. Patient reports that the sharp body pains have been ongoing for approximately 30 days. Patient also complains of left hand pain near the base of the first digit after suffering a fall several days ago. Patient reports that he is supposed to be taking lisinopril 40 mg twice daily and HCTZ 12.5 mg twice daily and reports that he has not been taking this as prescribed. Exam: Cap refill less than 3 seconds to bilateral lower extremities Dorsalis pedis pulses present Edema noted to patient's bilateral lower extremities, increased to right. I have greeted and performed a rapid initial assessment of this patient. A comprehensive ED assessment and evaluation of the patient, analysis of test results and completion of the medical decision making process will be conducted by additional ED providers. Dictation of this chart was performed using voice recognition software; therefore, there may be some unintended grammatical errors. TRAVEL OUTSIDE OF THE [place] IN LAST 30 DAYS: No - Related Data Allergies/Adverse Reactions: amoxicillin [Amoxicillin] Allergy (Verified 07/02/17 13:54) Penicillins Allergy (Verified 07/02/17 13:54) Past Medical History - Social History Frequency of alcohol use: Occasional Drug Abuse: None - Past Medical History Cardiac Medical History: Reports: Hx Hypertension Pulmonary Medical History: Denies: Hx Tuberculosis Neurological Medical History: Reports: Hx Migraine Renal/ Medical History: Reports: Hx Kidney Stones. Denies: Hx Peritoneal Dialysis GI Medical History: Reports: Hx Gastroesophageal Reflux Disease Musculoskeltal Medical History: Reports Hx Musculoskeletal Trauma Skin Medical History: Reports Hx Cellulitis, Reports Hx MRSA Psychiatric Medical History: Reports: Hx Anxiety, Hx Depression Traumatic Medical History: Reports: Hx Fractures - Arm, jaw Past Surgical History: Reports: Hx Cardiac Catheterization, Hx Oral Surgery - Fractured jaw plates in jaw, Hx Testicular Surgery - Immunizations Immunizations up to date: Yes Hx Diphtheria, Pertussis, Tetanus Vaccination: Yes
--- NOTE | 2017-11-25 23:29 | RADIOLOGY REPORT (SQ) ---
EXAM DESCRIPTION: XR HAND 3 OR MORE VIEWS COMPLETED DATE/TME: 11/25/2017 23:06 CLINICAL HISTORY: 47 years Male, pain near base of 1st digit COMPARISON: 12/17/2015 Findings: Moderate osteoarthritis of the first carpometacarpal joint. 0.3 cm ossicular calcification at the dorsal aspect of the radiocarpal joint seen on one view.. 0.3 cm triangular fragment anterior to the left first metacarpal base on one view. Bones, joints, and soft tissues of the LEFT XR HAND 3 VIEWS appear otherwise intact. IMPRESSION: 0.3 cm triangular fragment/calcification anterior to the left first metacarpal base on one view, indeterminate age.
--- NOTE | 2017-11-25 23:29 | RADIOLOGY REPORT (SQ) ---
EXAM DESCRIPTION: XR CHEST 1 VIEW COMPLETED DATE/TME: 11/25/2017 23:08 CLINICAL HISTORY: sob COMPARISON: 07/02/2017 FINDINGS: Single frontal view of the chest. Tortuosity of the thoracic aorta. Heart is not enlarged. Unchanged left midlung discoid atelectasis. No consolidation, large effusion, or pneumothorax. No acute osseous abnormalities. Upper abdominal soft tissues are unremarkable. IMPRESSION: 1. No acute pulmonary process identified.
[2017-11-26 00:04] LABS: ABSOLUTE BASOPHILS # (AUTO) 0.1 10^3/uL (0.0-0.2); ABSOLUTE EOSINOPHILS # (AUTO) 0.2 10^3/uL (0.0-0.6); ABSOLUTE LYMPHOCYTES (AUTO) 2.1 10^3/uL (0.5-4.7); ABSOLUTE MONOCYTES (AUTO) 0.8 10^3/uL (0.1-1.4); ABSOLUTE NEUT (AUTO) 5.5 10^3/uL (1.7-8.2); EOSINOPHILS % (AUTO) 2.7 % (0-6); HEMATOCRIT 42.9 % (37.9-51.0); HEMOGLOBIN 14.4 g/dL (13.5-17.0); MEAN CORPUSCULAR HEMOGLOBIN 28.4 pg (27.0-33.4); MEAN CORPUSCULAR HGB CONC 33.7 g/dL (32.0-36.0); MEAN CORPUSCULAR VOLUME 84 fl (80-97); PLATELET COUNT 299 10^3/uL (150-450); RED BLOOD COUNT 5.09 10^6/uL (4.35-5.55); SEGMENTED NEUTROPHILS % (AUTO) 63.3 % (42-78); TOTAL CELLS COUNTED % (AUTO) 100 %; WHITE BLOOD COUNT 8.6 10^3/uL (4.0-10.5)
[2017-11-26 00:27] LABS: ALANINE AMINOTRANSFERASE 57 U/L (21-72); ALBUMIN 4.1 g/dL (3.5-5.0); ALKALINE PHOSPHATASE 79 U/L (38-126); ANION GAP 13 (5-19); ASPARTATE AMINO TRANSFERASE 36 U/L (17-59); BILIRUBIN,DIRECT 0.3 mg/dL (0.0-0.4); BILIRUBIN,TOTAL 0.5 mg/dL (0.2-1.3); BLOOD UREA NITROGEN 11 mg/dL (7-20); CALCIUM 8.9 mg/dL (8.4-10.2); CARBON DIOXIDE 23 mmol/L (22-30); CHLORIDE 109 mmol/L (98-107); CREATINE KINASE 173 U/L (55-170); GLUCOSE 102 mg/dL (75-110); POTASSIUM 4.3 mmol/L (3.6-5.0); SODIUM 144.9 mmol/L (137-145); TOTAL PROTEIN 7.2 g/dL (6.3-8.2)
[2017-11-26 00:37] LABS: CREATINE KINASE MB 1.61 ng/mL (<4.55); NT PRO BNP 230 pg/mL (<125)
[2017-11-26 00:38] LABS: TROPONIN I < 0.012 ng/mL
[2017-11-26 01:58] LABS: APPEARANCE,URINE SLIGHTLY-CLOUDY; BILIRUBIN,URINE NEGATIVE (NEGATIVE); COLOR,URINE YELLOW; GLUCOSE, URINE NEGATIVE (NEGATIVE); KETONES,URINE NEGATIVE (NEGATIVE); LEUKOCYTE ESTERASE,URINE TRACE (NEGATIVE); NITRITE,URINE NEGATIVE (NEGATIVE); PROTEIN,URINE NEGATIVE (NEGATIVE); URIC ACID CRYSTALS,URINE RARE /HPF; URINE SPECIFIC GRAVITY 1.024; UROBILINOGEN,URINE NEGATIVE mg/dL (<2.0)
[2017-11-26] MEDS ORDERED: LISINOPRIL 10 MG TABLET PO ONE (03:10)
[2017-11-26] MEDS ORDERED: HYDROCHLOROTHIAZIDE 12.5 MG TABLET PO ONE (03:10)
--- NOTE | 2017-11-26 03:26 | ER Document Report ---
ED General - General Chief Complaint: Legs swelling/ pain in calf; L wrist pain s/p fall Stated Complaint: SWELLING IN FEET AND LEGS Time Seen by Provider: 11/25/17 22:54 Mode of Arrival: Wheelchair Notes: Patient is a 47-year-old male who presents with multiple complaints today. Patient reports bilateral lower extremity swelling, worse to the right side 1 week. Patient has associated shortness of breath and sharp pains to the entire right side of his body from his arm down his torso into his leg. Patient reports that the sharp body pains have been ongoing for approximately 30 days. Patient also complains of left hand pain near the base of the first digit after suffering a fall several days ago. Patient reports that he is supposed to be taking lisinopril 40 mg twice daily and HCTZ 12.5 mg twice daily and reports that he has not been taking this as prescribed. TRAVEL OUTSIDE OF THE [place] IN LAST 30 DAYS: No - Related Data Allergies/Adverse Reactions: amoxicillin [Amoxicillin] Allergy (Verified 07/02/17 13:54) Penicillins Allergy (Verified 07/02/17 13:54) Past Medical History - General Information source: Patient - Social History Smoking Status: Never Smoker Frequency of alcohol use: Occasional Drug Abuse: None Family History: Arthritis, CAD, CVA, Hyperlipidemia, Hypertension, Malignancy. denies: COPD, DM, Thyroid Disfunction Patient has suicidal ideation: No Patient has homicidal ideation: No - Past Medical History Cardiac Medical History: Reports: Hx Hypertension Pulmonary Medical History: Denies: Hx Tuberculosis Neurological Medical History: Reports: Hx Migraine Renal/ Medical History: Reports: Hx Kidney Stones. Denies: Hx Peritoneal Dialysis GI Medical History: Reports: Hx Gastroesophageal Reflux Disease Musculoskeletal Medical History: Reports Hx Musculoskeletal Trauma Skin Medical History: Reports Hx Cellulitis, Reports Hx MRSA Psychiatric Medical History: Reports: Hx Anxiety, Hx Depression Traumatic Medical History: Reports: Hx Fractures - Arm, jaw Past Surgical History: Reports: Hx Cardiac Catheterization, Hx Oral Surgery - Fractured jaw plates in jaw, Hx Testicular Surgery - Immunizations Immunizations up to date: Yes Hx Diphtheria, Pertussis, Tetanus Vaccination: Yes Review of Systems - Review of Systems Constitutional: See HPI EENT: No symptoms reported Cardiovascular: No symptoms reported Respiratory: No symptoms reported Gastrointestinal: No symptoms reported Genitourinary: No symptoms reported Male Genitourinary: No symptoms reported Musculoskeletal: See HPI Skin: No symptoms reported Hematologic/Lymphatic: No symptoms reported Neurological/Psychological: No symptoms reported Physical Exam - Vital signs Vitals: Temp Pulse Resp BP 97.9 F 87 18 181/120 H 11/25/17 22:05 11/25/17 22:05 11/25/17 22:05 11/25/17 22:05 - Notes Notes: PHYSICAL EXAMINATION: GENERAL: Well-appearing, well-nourished and in no acute distress. HEAD: Atraumatic, normocephalic. EYES: Pupils equal round and reactive to light, extraocular movements intact, sclera anicteric, conjunctiva are normal. ENT: Nares patent, oropharynx clear without exudates. Moist mucous membranes. NECK: Normal range of motion, supple without lymphadenopathy LUNGS: Breath sounds clear to auscultation bilaterally and equal. No wheezes rales or rhonchi. HEART: Regular rate and rhythm without murmurs ABDOMEN: Soft, nontender, nondistended abdomen. No guarding, no rebound. No masses appreciated. Musculoskeletal: Normal range of motion. No cyanosis. Nonpitting edema 1+ noted to patient's bilateral lower extremities. No swelling noted to patient's left hand. NEUROLOGICAL: Cranial nerves grossly intact. Normal speech, normal gait. Normal sensory, motor exams PSYCH: Normal mood, normal affect. SKIN: Warm, Dry, normal turgor, no rashes or lesions noted. Course - Re-evaluation Re-evalutation: Patient is a 47-year-old male who presents the emergency department today with multiple complaints, see HPI. Patient is hypertensive on arrival, reports he has not been taking his blood pressure medications lately. Patient is alert, oriented and nontoxic in appearance. Physical exam is unremarkable other than mild swelling to his bilateral lower extremities. CBC is unremarkable, CMP with mildly elevated CK at 173, BNP is 230. Troponin was negative. Urinalysis is unremarkable. EKG was performed, shows a sinus rhythm rate of 57, normal axis, no ST segment elevations or depressions. chest xray is negative with no cardiomegaly or exidence of CHF. Patient reports pain to his left hand although he is unsure if he had an injury, this pain has been going on for at least 2 weeks. Right hand x-ray reveals a 0.3 cm triangular fragment versus calcification anterior to the left first metacarpal. Will place patient in a thumb spica splint and refer to [facility] for follow-up. Patient 's blood pressure medications were ordered as he states he has not taken them for several months. Patient is requesting to leave the emergency department, patient reporting he has been here since approximately 9 PM. It is now 3:00. Patient is unwilling to stay to monitor his blood pressure to ensure that the blood pressure medications I gave him have reduced his blood pressure. Patient will be discharged at this time, patient given extensive instructions on blood pressure management and the need to have close follow-up with his primary care provider. Patient encouraged to return to the emergency department immediately if he develops any worsening symptoms, shortness of breath or chest pains. - Vital Signs Vital signs: Temp Pulse Resp BP Pulse Ox 97.6 F 69 20 184/108 H 96 11/26/17 03:08 11/26/17 03:08 11/26/17 03:08 11/26/17 03:55 11/26/17 03:08 - Laboratory Result Diagrams: 11/25/17 23:37 11/25/17 23:37 Laboratory results interpreted by me: 11/25/17 11/25/17 11/25/17 23:37 23:37 23:37 RDW 15.0 H Chloride 109 H Creatine Kinase 173 H NT-Pro-B Natriuret Pep 230 H Ur Leukocyte Esterase 11/25/17 23:37 RDW Chloride Creatine Kinase NT-Pro-B Natriuret Pep Ur Leukocyte Esterase TRACE H Discharge - Discharge Clinical Impression: Peripheral edema Condition: Stable Disposition: HOME, SELF-CARE Additional Instructions: Edema, Peripheral You have swelling in your legs. This is called peripheral edema. It can be caused by "leaky capillaries," inflammation, disease of the leg veins, or excess salt and water in your body. Edema may be a sign of heart, kidney, or liver disease. A medical evaluation can determine if there is a serious underlying cause for your edema. Avoid prolonged standing. If you must sit for a long time, occasionally get up and walk around or elevate your legs. Support stockings can be helpful in limiting swelling. Often diuretic or water pills are used to remove excess salt and water from your body. Call the doctor or return if you develop increased swelling, pain, or redness, shortness of breath, chest pain, or any other significant change. Fracture You have a possible fracture. The typical broken bone requires only protection and sufficient time for healing. "Setting" is necessary only if the bones are crooked or out of position. The physician will re-assess you periodically to make certain that the bone heals without complications. It's important that you follow the instructions given you. The initial treatment is immobilization, elevation of the injury, and cold packs. Not all fractures require a cast. Depending on the location and type of fracture, immobilization may consist of a splint, cast, sling, bulky dressing , or simply rest. The length of time required for healing depends on the location and type of fracture, and on the age of the patient. The treatment plan the physician has outlined for you is customized to your fracture and health condition. Call the doctor or return at once if pain becomes severe, or if severe swelling or numbness develop. Please follow-up with orthopedics for your left hand pain. Please keep the splint in place until you are seen by orthopedics. Take ibuprofen 600 mg every 6 hours as needed for pain and inflammation. Please get the prescription for your blood pressure medication filled. Please follow-up with your primary care provider at [facility] regarding your peripheral edema. Try to maintain a low sodium diet. Elevate your extremities as much as possible. Prescriptions: Hydrochlorothiazide 12.5 mg PO BID #60 capsule Lisinopril 40 mg PO BID #60 tablet Forms: Return to Work Referrals: EVERTON HYLTON DO [ACTIVE STAFF] - Follow up as needed [facility] [Provider Group] - Follow up as needed
[2017-11-26 04:16] VITALS: BP 184/108
--- NOTE | 2017-11-26 13:43 | EKG REPORT ---
SEVERITY:- BORDERLINE ECG - SINUS RHYTHM BORDERLINE REPOL ABNORMALITY, ANT-LAT LEADS : Confirmed by: Ana Barakat MD 26-Nov-2017 13:42:44
== END 2017-11-26 03:59 | disposition home or self-care (01) ==
LOC: ER 21:58
DX: R60.9 Edema, unspecified (principal); R06.02 Shortness of breath; I10 Essential (primary) hypertension; Z88.0 Allergy status to penicillin; Z87.442 Personal history of urinary calculi
CPT/HCPCS: 36415; 71045; 80053; 81001; 82550; 82553; 83880; 84484; 85025; 93005; 93010; 99284

== ENCOUNTER 2018-03-19 13:26 | Emergency (ER) | payer SELFPAY ==
[2018-03-19 13:37] VITALS: BP 169/118
[2018-03-19] MEDS ORDERED: CLINDAMYCIN HCL 150 MG CAPSULE PO ONE (14:00)
[2018-03-19] MEDS ORDERED: ACETAMINOPHEN 325 MG TABLET PO ONE (14:00)
--- NOTE | 2018-03-19 14:04 | ER Document Report ---
HPI - HPI Patient complains to provider of: Dental pain Time Seen by Provider: 03/19/18 13:58 Onset: Other - 2 days Onset/Duration: Persistent Quality of pain: Achy Pain Level: 5 Context: Patient presents complaining of dental pain to right lower jaw for the past 2 days. Patient denies any fever or facial swelling. Associated Symptoms: denies: Fever, Headache, Vomiting Exacerbated by: Denies Relieved by: Denies Similar symptoms previously: Yes Recently seen / treated by doctor: No - ROS ROS below otherwise negative: Yes Systems Reviewed and Negative: Yes All other systems reviewed and negative - EENT EENT: DENIES: Sore Throat - GASTROINTESTINAL Gastrointestinal: DENIES: Nausea, Patient vomiting - MUSCULOSKELETAL Musculoskeletal: DENIES: Neck Pain - DERM Skin Color: Normal Skin Problems: None Past Medical History - General Information source: Patient - Social History Smoking Status: Never Smoker Frequency of alcohol use: None Drug Abuse: None 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 denies: COPD, DM, Thyroid Disfunction - Past Medical History Cardiac Medical History: Reports: Hx Hypertension Pulmonary Medical History: Denies: Hx Tuberculosis Neurological Medical History: Reports: Hx Migraine Renal/ Medical History: Reports: Hx Kidney Stones. Denies: Hx Peritoneal Dialysis GI Medical History: Reports: Hx Gastroesophageal Reflux Disease Musculoskeletal Medical History: Reports Hx Musculoskeletal Trauma Skin Medical History: Reports Hx Cellulitis, Reports Hx MRSA Psychiatric Medical History: Reports: Hx Anxiety, Hx Depression Traumatic Medical History: Reports: Hx Fractures - Arm, jaw Past Surgical History: Reports: Hx Cardiac Catheterization, Hx Oral Surgery - Fractured jaw plates in jaw, Hx Testicular Surgery - Immunizations Immunizations up to date: Yes Hx Diphtheria, Pertussis, Tetanus Vaccination: Yes Vertical Provider Document - CONSTITUTIONAL Agree With Documented VS: Yes Exam Limitations: No Limitations General Appearance: WD/WN, No Apparent Distress - INFECTION CONTROL TRAVEL OUTSIDE OF THE [place] IN LAST 30 DAYS: No - HEENT HEENT: Atraumatic, Normocephalic Mouth Diagram: 1 - Dental fracture, dental decay, no gingival abscess, no trismus. No sublingual or submental swelling - NECK Neck: Normal Inspection, Supple. negative: Lymphadenopathy-Left, Lymphadenopathy-Right - RESPIRATORY Respiratory: Breath Sounds Normal, No Respiratory Distress - CARDIOVASCULAR Cardiovascular: Regular Rate, Regular Rhythm - BACK Back: Normal Inspection - MUSCULOSKELETAL/EXTREMETIES Musculoskeletal/Extremeties: YANETH AGUILAR - NEURO Level of Consciousness: Awake, Alert, Appropriate Motor/Sensory: No Motor Deficit - DERM Integumentary: Warm, Dry, No Rash Course - Re-evaluation Re-evalutation: 03/19/18 14:02 Patient reports a history of high blood pressure and reports being compliant with his medication. Patient advised to follow-up with primary doctor as he may need his blood pressure medications adjusted. Patient without any chest pain headache or back pain. Patient with widespread dental decay with dental fracture to the right lower jaw. No concern for abscess at this time. - Vital Signs Vital signs: Temp Pulse Resp BP Pulse Ox 97.5 F 65 14 169/118 H 92 03/19/18 13:33 03/19/18 13:33 03/19/18 13:33 03/19/18 13:33 03/19/18 13:33 Discharge - Discharge Clinical Impression: Toothache, Elevated blood pressure reading Condition: Stable Disposition: HOME, SELF-CARE Instructions: Clindamycin ([facility]), Dentist, Toothache ([facility]), Ultram ([facility]) Additional Instructions: Return as needed for any new or worsening symptoms Follow-up with your primary doctor, he may need to have your medications adjusted for your blood pressure as it is still elevated today despite taking your medication. Follow-up with the dental care provider Prescriptions: Clindamycin HCl [Cleocin 300 mg Capsule] 300 mg PO TID #21 capsule Tramadol HCl [Ultram 50 mg Tablet] 50 mg PO ASDIR PRN #12 tablet PRN Reason: Forms: Return to Work Referrals: [facility] [Provider Group] - Follow up as needed
== END 2018-03-19 14:10 | disposition home or self-care (01) ==
LOC: ER 13:26
DX: K02.9 Dental caries, unspecified (principal); K08.89 Other specified disorders of teeth and supporting structures; I10 Essential (primary) hypertension; Z79.899 Other long term (current) drug therapy
CPT/HCPCS: 99283

== ENCOUNTER 2019-05-16 12:31 | Emergency (ER) | payer SELFPAY ==
[2019-05-16 12:38] VITALS: BP 169/102
[2019-05-16] MEDS ORDERED: KETOROLAC TROMETHAMINE INJ/PF 30 MG/1 ML SDV IM ONE (13:07)
[2019-05-16] MEDS ORDERED: LIDOCAINE 5% (700 MG) TRANSDERMAL ADH..PATCH TP ONE (13:08)
--- NOTE | 2019-05-16 13:13 | ER Document Report ---
HPI - HPI Time Seen by Provider: 05/16/19 13:07 Pain Level: 3 Context: Patient is a 48-year-old male who presents to the emergency department with a chief complaint of a fall. Patient reports 2 to 3 days ago he was walking and carrying an object when he stepped in a hole with his right foot. Patient reports this did cause him to fall onto his right side. Patient complains of right knee, right hip and right back pain. Patient reports he does have a history of sciatica and that this feels very similar. Patient reports at times he will have some numbness that radiates down the back of his right leg. Patient denies loss of bowel or bladder. Patient denies numbness or tingling around the groin or rectal region. Patient reports he has not had anything today for his discomfort. Patient denies any other injury. Patient also complains of left middle finger redness. Patient reports a couple weeks ago he was bit by a spider. Patient reports that a little pustule did develop which popped. Patient states he has been cleaning up with Ruchi dish detergent, rubbing alcohol and Lotrimin. Patient states it does not hurt but does itch. Patient denies redness that streaks up his hand or arm. Patient denies fever. Patient denies joint pain. - REPRODUCTIVE Reproductive: DENIES: : Past Medical History - General Information source: Patient - Social History Smoking Status: Current Every Day Smoker Chew tobacco use (# tins/day): No Frequency of alcohol use: Occasional Drug Abuse: None Lives with: Family Family History: Arthritis, CAD, CVA, Hyperlipidemia, Hypertension, Malignancy. denies: COPD, DM, Thyroid Disfunction Patient has suicidal ideation: No Patient has homicidal ideation: No - Past Medical History Cardiac Medical History: Reports: Hx Hypertension Pulmonary Medical History: Reports: None Denies: Hx Tuberculosis EENT Medical History: Reports: None Neurological Medical History: Reports: Hx Migraine Endocrine Medical History: Reports: None Renal/ Medical History: Reports: Hx Kidney Stones. Denies: Hx Peritoneal Dialysis Malignancy Medical History: Reports None GI Medical History: Reports: Hx Gastroesophageal Reflux Disease Musculoskeletal Medical History: Reports Hx Musculoskeletal Trauma Skin Medical History: Reports Hx Cellulitis, Reports Hx MRSA Psychiatric Medical History: Reports: Hx Anxiety, Hx Depression Traumatic Medical History: Reports: Hx Fractures - Arm, jaw Infectious Medical History: Reports: None Past Surgical History: Reports: Hx Cardiac Catheterization, Hx Oral Surgery - Fractured jaw plates in jaw, Hx Testicular Surgery - Immunizations Immunizations up to date: Yes Hx Diphtheria, Pertussis, Tetanus Vaccination: Yes Vertical Provider Document - CONSTITUTIONAL Agree With Documented VS: Yes Exam Limitations: No Limitations General Appearance: No Apparent Distress - INFECTION CONTROL TRAVEL OUTSIDE OF THE [place] IN LAST 30 DAYS: No - HEENT HEENT: Atraumatic, Normal ENT Exam, Normocephalic, PERRLA - NECK Neck: Normal Inspection - RESPIRATORY Respiratory: Breath Sounds Normal, No Respiratory Distress - CARDIOVASCULAR Cardiovascular: Regular Rate, Regular Rhythm - GI/ABDOMEN Gastrointestinal: Abdomen Soft, Abdomen Non-Tender, Normal Bowel Sounds - BACK Notes: Patient does not have any cervical thoracic midline tenderness with palpation. Patient does have lumbar midline tenderness with palpation. - MUSCULOSKELETAL/EXTREMETIES Musculoskeletal/Extremeties: FROM Notes: Patient is able to ambulate with a steady gait. Patient does have right hip tenderness and right lateral and right medial tenderness to the knee. There is no obvious deformity, edema, ecchymosis or erythema noted to the right knee. Patient does have full range of motion to the right knee including flexion and extension. No tenderness to the patella. - NEURO Level of Consciousness: Awake, Alert, Appropriate - DERM Integumentary: Warm Notes: Patient does have dry excoriated skin noted to the dorsal aspect of the left middle finger. This does encompass the distal and proximal aspect of the left finger. Slightly erythematous, skin is not warm to touch, there is no drainage, skin appears significantly dry. Patient is able to flex and extend his left middle finger and has full range of motion at the DIP and PIP joint. Patient has a less than 2-second cap refill to the left little finger. Course - Re-evaluation Re-evalutation: 05/16/19 15:02 Patient reports that injection did help with his right lower back pain but his right knee still hurts. We will place the patient in the immobilizer. Patient does not have health insurance but does state he is attempting [facility] I did inform the patient that his right knee x-ray was negative but this only shows bone and fluid as he could have an underlying ligament or tendon injury. Patient states he does not do crutches well. - Vital Signs Vital signs: Temp Pulse Resp BP Pulse Ox 97.6 F 77 18 169/102 H 97 05/16/19 12:36 05/16/19 12:36 05/16/19 12:36 05/16/19 12:36 05/16/19 12:36 - Diagnostic Test Radiology reviewed: Reports reviewed Radiology results interpreted by me: 05/16/19 15:02 Hip/Pelvis X-Ray 05/16/19 13:08 IMPRESSION: No acute fracture. Knee X-Ray 05/16/19 13:08 IMPRESSION: No acute fracture or dislocation of the right knee. Mild tricompartmental osteoarthritis. Lumbar Spine X-Ray 05/16/19 13:08 IMPRESSION: 1. No acute fracture or dislocation of the lumbar spine. 2. Spondylosis, degenerative disc disease, and facet arthropathy. 3. Right renal calculus. Discharge - Discharge Clinical Impression: Pain of back and right lower extremity Right knee pain Qualifiers: Chronicity: acute Qualified Code(s): M25.561 - Pain in right knee Condition: Stable Disposition: HOME, SELF-CARE Additional Instructions: *Today was in the emergency department after a fall. Your x-rays of the lower back, right hip and right knee were all negative for any acute fracture. You do have osteoarthritis in the right hip. Please continue taking anti- inflammatories and resting. Use ice over the sites that hurt you. Please take the muscle relaxer as needed. Do not drive or operate heavy machinery while on this medication. Please follow-up with your primary care physician for reevalua tion or return to the emergency department if you develop any new or worsening symptoms such as numbness or tingling to your lower extremities, inability to walk, severe pain, loss of bowel or bladder, numbness or tingling around the groin or rectal region or any new or worsening symptoms. Prescriptions: Cyclobenzaprine HCl [Flexeril 10 mg Tablet] 10 mg PO TIDP PRN #12 tab PRN Reason: Ibuprofen [Motrin 800 mg Tablet] 800 mg PO Q8H PRN #30 tab PRN Reason: Forms: Return to Work
--- NOTE | 2019-05-16 13:54 | RADIOLOGY REPORT (SQ) ---
EXAM DESCRIPTION: HIP RIGHT AP/LATERAL COMPLETED DATE/TIME: 05/16/2019 1:32 pm REASON FOR STUDY: fall COMPARISON: None. NUMBER OF VIEWS: Two views. TECHNIQUE: AP pelvis and additional frog-leg view of the right hip. LIMITATIONS: None. FINDINGS: MINERALIZATION: Normal. RIGHT HIP: No fracture or dislocation. No worrisome bone lesions. Mild joint space narrowing. LEFT HIP: No fracture or dislocation. No worrisome bone lesions. Mild joint space narrowing. PUBIS AND ISCHIUM: No fracture. PELVIS: No fracture. SACRUM: No fracture or dislocation. No worrisome bone lesions. SOFT TISSUES: No findings. OTHER: No other significant finding. IMPRESSION: No acute fracture. TECHNICAL DOCUMENTATION: JOB ID: [id number] [employer]- All Rights Reserved Reading location - IP/workstation name: [email or web address]
--- NOTE | 2019-05-16 13:57 | RADIOLOGY REPORT (SQ) ---
EXAM DESCRIPTION: KNEE RIGHT 4 VIEWS COMPLETED DATE/TIME: 05/16/2019 12:32 pm REASON FOR STUDY: fall COMPARISON: None. NUMBER OF VIEWS: Four views. TECHNIQUE: AP, lateral, and both oblique radiographic images acquired of the right knee. LIMITATIONS: None. FINDINGS: MINERALIZATION: Normal. BONES: No acute fracture or dislocation. No worrisome bone lesions. Small marginal osteophytes at t he medial and lateral compartments and bony spurring of the tibial spines. JOINT: No joint effusion. No intra-articular loose body. SOFT TISSUES: No soft tissue swelling. No radio-opaque foreign body. OTHER: No other significant finding. IMPRESSION: No acute fracture or dislocation of the right knee. Mild tricompartmental osteoarthriti s. TECHNICAL DOCUMENTATION: JOB ID: [id number] [employer]- All Rights Reserved Reading location - IP/workstation name: [email or web address]
--- NOTE | 2019-05-16 13:59 | RADIOLOGY REPORT (SQ) ---
EXAM DESCRIPTION: L SPINE WHOLE COMPLETED DATE/TIME: 05/16/2019 12:32 pm REASON FOR STUDY: fall COMPARISON: None. NUMBER OF VIEWS: Five views including obliques. TECHNIQUE: AP, lateral, oblique, and sacral radiographic images acquired of the lumbar spine. LIMITATIONS: None. FINDINGS: MINERALIZATION: Normal. SEGMENTATION: Normal. No transitional anatomy. ALIGNMENT: Mild straightening of the normal lumbar lordosis likely on the basis of chronic degenerati ve change. VERTEBRAE: There is no acute fracture or loss of vertebral body height. Spondylosis with small easton nal osteophytes at the endplates. Subchondral sclerosis at the endplates particularly at L3-S1. DISCS: Multilevel degenerative disc disease with loss of intervertebral disc height. POSTERIOR ELEMENTS: There is facet arthropathy particularly at L4-L5 and L5-S1. HARDWARE: None in the spine. PARASPINAL SOFT TISSUES: Calcification projects over the inferior pole right kidney, probably a renal calculus. PELVIS: Intact as visualized. No fractures or worrisome bone lesions. SI joints intact. OTHER: No other significant finding. IMPRESSION: 1. No acute fracture or dislocation of the lumbar spine. 2. Spondylosis, degenerative disc disease, and facet arthropathy. 3. Right renal calculus. TECHNICAL DOCUMENTATION: JOB ID: [id number] [employer]- All Rights Reserved Reading location - IP/workstation name: [email or web address]
== END 2019-05-16 15:35 | disposition home or self-care (01) ==
LOC: ER 12:31
DX: M25.561 Pain in right knee (principal); M79.604 Pain in right leg; M25.551 Pain in right hip; M54.9 Dorsalgia, unspecified; W17.2XXA Fall into hole, initial encounter; F17.200 Nicotine dependence, unspecified, uncomplicated; L53.9 Erythematous condition, unspecified; I10 Essential (primary) hypertension; Z86.14 Personal history of Methicillin resistant Staphylococcus aureus infection; Z87.442 Personal history of urinary calculi
CPT/HCPCS: 99283; 96372; 73502; 73564; 72110; L1830; J1885

== ENCOUNTER 2019-05-20 17:56 | Emergency (ER) | payer SELFPAY ==
[2019-05-20] MEDS ORDERED: IBUPROFEN 800 MG TABLET PO ONE (19:07)
--- NOTE | 2019-05-20 19:09 | ER Document Report ---
ED Extremity Problem, Lower - General Chief Complaint: Knee Pain Stated Complaint: RIGHT KNEE PAIN Time Seen by Provider: 05/20/19 19:03 Primary Care Provider: [facility] [Provider Group] - Follow up in 3-5 days SERA ENGLISH MD [ACTIVE PROVISIONAL STAFF] - Follow up in 3-5 days JARED RAMOS JR, DO [ACTIVE PROVISIONAL STAFF] - Follow up in 3-5 days Mode of Arrival: Wheelchair Information source: Patient Notes: 48-year-old male presented to ED for complaint of pain to the right knee. He states he turned while he was standing still and he felt and heard his right knee pop. He states he has not been able to walk on his knee since then due to the pain. He does have pain to medial and lateral aspect of the knee as well as the popliteal area. He denies any prior history to this knee. TRAVEL OUTSIDE OF THE [place] IN LAST 30 DAYS: No - HPI Patient complains to provider of: Injury, Pain, Swelling Location: Knee - Right knee Occurred: Just prior to arrival Where: Home, Indoors Onset/Duration: Sudden Quality of pain: Sharp Severity: Severe Pain Level: 5 Context: Twisted Recent injury: Yes Associated symptoms: Painful ambulation Exacerbated by: Hanging down, Movement, Walking Relieved by: Nothing - Related Data Allergies/Adverse Reactions: amoxicillin [Amoxicillin] Allergy (Verified 05/20/19 19:01) Penicillins Allergy (Verified 05/20/19 19:01) Past Medical History - General Information source: Patient - Social History Smoking Status: Never Smoker Frequency of alcohol use: None Drug Abuse: None 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 denies: COPD, DM, Thyroid Disfunction - Past Medical History Cardiac Medical History: Reports: Hx Hypertension Pulmonary Medical History: Denies: Hx Tuberculosis Neurological Medical History: Reports: Hx Migraine Renal/ Medical History: Reports: Hx Kidney Stones. Denies: Hx Peritoneal Dialysis GI Medical History: Reports: Hx Gastroesophageal Reflux Disease Musculoskeletal Medical History: Reports Hx Musculoskeletal Trauma Skin Medical History: Reports Hx Cellulitis, Reports Hx MRSA Psychiatric Medical History: Reports: Hx Anxiety, Hx Depression Traumatic Medical History: Reports: Hx Fractures - Arm, jaw Past Surgical History: Reports: Hx Cardiac Catheterization, Hx Oral Surgery - Fractured jaw plates in jaw, Hx Testicular Surgery - Undescended testicle - Immunizations Immunizations up to date: Yes Hx Diphtheria, Pertussis, Tetanus Vaccination: Yes Review of Systems - Review of Systems Constitutional: No symptoms reported EENT: No symptoms reported Cardiovascular: No symptoms reported Respiratory: No symptoms reported Gastrointestinal: No symptoms reported Genitourinary: No symptoms reported Male Genitourinary: No symptoms reported Musculoskeletal: Joint pain - Right knee, Joint swelling - Right knee Skin: No symptoms reported Hematologic/Lymphatic: No symptoms reported Neurological/Psychological: No symptoms reported -: Yes All other systems reviewed and negative Physical Exam - Vital signs Vitals: Temp Pulse Resp BP Pulse Ox 97.8 F 80 18 179/99 H 100 05/20/19 18:06 05/20/19 18:06 05/20/19 18:06 05/20/19 18:06 05/20/19 18:06 Interpretation: Normal - General General appearance: Appears well, Alert - HEENT Head: Normocephalic, Atraumatic Eyes: Normal Pupils: PERRL - Respiratory Respiratory status: No respiratory distress Chest status: Nontender Breath sounds: Normal Chest palpation: Normal - Cardiovascular Rhythm: Regular Heart sounds: Normal auscultation Murmur: No - Abdominal Inspection: Normal Distension: No distension Bowel sounds: Normal Tenderness: Nontender Organomegaly: No organomegaly - Back Back: Normal, Nontender - Extremities General upper extremity: Normal inspection, Nontender, Normal color, Normal ROM, Normal temperature General lower extremity: Normal color, Normal ROM, Normal temperature. No: David's sign Knee: Tender, Pain with ROM, Patellar tendon intact, Popliteal fossa tender, Tender joint line, Unable to bear weight - Due to pain. No: Abrasion, Deformity, Dislocation, Drawer's test instability, Ecchymosis, Instability, Joint effusion, Laceration, Laxity with valgus stress, Laxity with varus stress - Neurological Neuro grossly intact: Yes Cognition: Normal Orientation: AAOx4 Merle Coma Scale Eye Opening: Spontaneous Merle Coma Scale Verbal: Oriented Wilson Coma Scale Motor: Obeys Commands Wilson Coma Scale Total: 15 Speech: Normal Motor strength normal: LUE, RUE, LLE, RLE Sensory: Normal - Psychological Associated symptoms: Normal affect, Normal mood - Skin Skin Temperature: Warm Skin Moisture: Dry Skin Color: Normal Course - Re-evaluation Re-evalutation: 05/20/19 22:20 Discussed x-ray results with patient and written report of x-rays given to patient. Patient was treated with a knee immobilizer to his right knee. There was no effusion no dislocation and no fracture to the knee noted. He had been seen before for the same knee pain. He states he did twist his knee but could not tell me when or where he had twisted it. He was treated with ibuprofen 800 and emergency room and instructed on use of Tylenol Motrin elevation ice and knee immobilizer. Patient's significant other requested more ibuprofen a couple hours after the 800 mg were given and I did explain that 800 mg was the most he could take at a time. I did instruct patient and his significant other that he needs to follow-up with orthopedics with continued pain. I did give him a list of multiple orthopedics to follow-up with. Patient was discharged home. - Vital Signs Vital signs: Temp Pulse Resp BP Pulse Ox 97.9 F 68 18 175/97 H 97 05/20/19 20:42 05/20/19 20:42 05/20/19 20:42 05/20/19 20:42 05/20/19 20:42 - Diagnostic Test Radiology reviewed: Image reviewed, Reports reviewed Procedures - Immobilization Right Knee Time completed: 20:55 Pre-Proc Neuro Vasc Exam: Normal Immobilizer type: Crutches, Knee immobilizer Performed by: PCT Post-Proc Neuro Vasc Exam: Normal Alignment checked and good: Yes Discharge - Discharge Clinical Impression: Right knee injury Qualifiers: Encounter type: initial encounter Qualified Code(s): S89.91XA - Unspecified injury of right lower leg, initial encounter Condition: Stable Disposition: HOME, SELF-CARE Additional Instructions: SUSPECTED INTERNAL KNEE INJURY: The examiner of your injured knee suspects an internal injury to the cartilage or internal ligaments. This must be further investigated by an docketing specialist. The knee should be protected, ice packed, and elevated while awaiting your follow-up exam by the orthopedist. If there is severe swelling, severe pain, or any new symptoms while awaiting your exam, you should call the orthopedist. (If he/she is unavailable, call us or return for re-examination.) KNEE IMMOBILIZING SPLINT: The knee immobilizing splint will protect the injury while healing begins. This type of splint does not allow the knee to bend at all. No running or sports will be possible. If the splint allows painfree walking, it's giving adequate protection. If there is still significant pain, crutches may be needed as well. Don't do anything that hurts. Adjusted the splint, if necessary. The stiffeners on the sides are attached with Velcro, so they can be easily moved to adjust for thigh and calf size. If you need help with these adjustments, come back. You will lose muscle strength in the thigh while using this splint. The doctor will advise you if it's safe to do isometric knee exercises while you use it. USE OF CRUTCHES: The doctor has recommended that you not bear weight at this time. You will need to use crutches. Adjust the crutches so the tops come to about two inches under the armpit while you are standing upright. Use your hands -- not your armpits -- to support your weight. To get into a chair, support yourself with one crutch on the injured side. Hold the chair with the other hand, then lower yourself while putting all your weight on the good leg. Going up stairs is `good leg up, step up, then bring up crutches and bad leg.' Down stairs is `bad leg and crutches down, then bring good leg down.' If you develop numbness or swelling in an arm or hand, you are using the crutches incorrectly. Return if you are having any problems with the crutches. ICE & ELEVATION: Apply ice packs frequently against the painful area. Many different schedules are recommended, such as "20 minutes on, 20 minutes off" or "one hour ice, two hours rest." If you need to work, you may need to go longer between ice treatments. You should plan to have the area ice packed AT LEAST one-fourth of the time. The ice should be applied over the wrap, tape, or splint, or over a layer of cloth -- not directly against the skin. Some ice bags have a built-in cloth and can be put directly on the skin. Your injured part should be elevated as much as possible over the next 48 hours. Try to keep the injury above the level of the heart. Avoid use of the injured area. Elevation and rest will decrease the swelling. USE OF [id number] IBUPROFEN: Ibuprofen (Advil, Nuprin, Medipren, Motrin IB) is a medication for fever and pain control. In addition, it has anti- inflammatory effects which may be beneficial, especially in the treatment of injuries. It's best to take ibuprofen with food. Persons with ulcer disease or allergy to aspirin should notify their physician of this before taking ibuprofen. Ibuprofen can be given every four to six hours, for a total of four doses daily. Age Pain or fever dose Antiinflammatory dose 6-8 yr 200 mg (1 tab) 200 mg (1 tab) 9-11 yr 200 mg (1 tab) 200-400 mg (1-2 tab) 11-14 yr 200-400 mg (1-2 tab) 400 mg (2 tab) 15-adult 400 mg (2 tab) 600 mg (3 tab) FOLLOW-UP CARE: If you have been referred to a physician for follow-up care, call the physicians office for an appointment as you were instructed or within the next two days. If you experience worsening or a significant change in your symptoms, notify the physician immediately or return to the Emergency Department at any time for re-evaluation. Forms: Elevated Blood Pressure Referrals: [facility]) [Provider Group] - Follow up in 3-5 days SERA ENGLISH MD [ACTIVE PROVISIONAL STAFF] - Follow up in 3-5 days JARED RAMOS JR, DO [ACTIVE PROVISIONAL STAFF] - Follow up in 3-5 days
--- NOTE | 2019-05-20 20:13 | RADIOLOGY REPORT (SQ) ---
XR KNEE 4 OR MORE VIEWS CLINICAL STATEMENT: Pain and injury COMPARISON: 05/16/2019 FINDINGS: Bony alignment is anatomic. There is no fracture or dislocation. The soft tissues are unremarkable. No significant suprapatellar joint effusion. IMPRESSION: No fracture.
[2019-05-20 20:44] VITALS: BP 175/97
== END 2019-05-20 20:50 | disposition home or self-care (01) ==
LOC: ER 17:56
DX: S89.91XA Unspecified injury of right lower leg, initial encounter (principal); M25.561 Pain in right knee; M79.89 Other specified soft tissue disorders; X50.1XXA Overexertion from prolonged static or awkward postures, initial encounter; I10 Essential (primary) hypertension
CPT/HCPCS: 73564; L1830; 99283

== ENCOUNTER 2020-03-29 15:06 | Emergency (ER) | payer SELFPAY ==
--- NOTE | 2020-03-29 15:54 | ER Document Report ---
ED Medical Screen (RME) - General Chief Complaint: Hand Swelling Stated Complaint: HAND SWELLING Time Seen by Provider: 03/29/20 15:42 TRAVEL OUTSIDE OF THE [place] IN LAST 30 DAYS: No - HPI Notes: 03/29/20 15:49 49-year-old male with a history of hypertension and obesity presents to the emergency room today for evaluation of his right third phalange he that is swollen and he has been battling poison [employer] for the last 3 months, has been on multiple antibiotics and now he has left hand swelling and pain that has become progressively worse. Patient also reports a spider bite on his abdomen. Patient reports he does take lisinopril in the morning and at night. He currently does not have a primary care provider. Is denying any chest pain shortness of breath, nausea vomiting diarrhea, blurred vision, double vision, loss of vision, numbness or tingling down bilateral upper or lower extremities. Denies any lightheadedness or dizziness. Patient reports he did have a stress test done states roughly around 3 years ago from what he can recall, he states they did take him to the [facility] but he did not need a cath. Patient does not believe that he is diabetic. Patient reports his pain is 4 out of 5, throbbing achy. Denies any fevers or chills. Patient is unsure what his typical blood pressure is. Thinks he takes lisinopril but is not sure the dose. I have greeted and performed a rapid initial assessment of this patient. A comprehensive ED assessment and evaluation of the patient, analysis of test results and completion of the medical decision making process will be conducted by additional ED providers. PHYSICAL EXAMINATION: GENERAL: Well-appearing, morbidly obese and in no acute distress. HEAD: Atraumatic, normocephalic. EYES: Pupils equal round extraocular movements intact, conjunctiva are normal. NECK: Normal range of motion CV: s1, s2 regular LUNGS: No respiratory distress Musculoskeletal: Normal range of motion NEUROLOGICAL: Normal speech, normal gait. SKIN: Warm, Dry, normal turgor, no rashes or lesions noted. Left finger with multiple scabs, edema with surrounding erythema. [id number] area of erythema to center of abdomen. - Related Data Allergies/Adverse Reactions: amoxicillin [Amoxicillin] Allergy (Verified 03/29/20 15:40) Penicillins Allergy (Verified 03/29/20 15:40) Past Medical History - Past Medical History Cardiac Medical History: Reports: Hx Hypertension Pulmonary Medical History: Denies: Hx Tuberculosis Neurological Medical History: Reports: Hx Migraine Renal/ Medical History: Reports: Hx Kidney Stones. Denies: Hx Peritoneal Dialysis GI Medical History: Reports: Hx Gastroesophageal Reflux Disease Musculoskeltal Medical History: Reports Hx Musculoskeletal Trauma Skin Medical History: Reports Hx Cellulitis, Reports Hx MRSA Psychiatric Medical History: Reports: Hx Anxiety, Hx Depression Traumatic Medical History: Reports: Hx Fractures - Arm, jaw Past Surgical History: Reports: Hx Cardiac Catheterization, Hx Oral Surgery - Fractured jaw plates in jaw, Hx Testicular Surgery - Undescended testicle - Immunizations Immunizations up to date: Yes Hx Diphtheria, Pertussis, Tetanus Vaccination: Yes Physical Exam - Vital signs Vitals: Temp Pulse Resp BP Pulse Ox 97.8 F 84 20 206/120 H 96 03/29/20 15:12 03/29/20 15:12 03/29/20 15:12 03/29/20 15:12 03/29/20 15:12 Course - Vital Signs Vital signs: Temp Pulse Resp BP Pulse Ox 97.8 F 84 20 206/120 H 96 03/29/20 15:12 03/29/20 15:12 03/29/20 15:12 03/29/20 15:12 03/29/20 15:12 - Laboratory Lab Results Review: Normal Lab Results Reviewed - NO LABS HAVE BEEN DRAWN YET
[2020-03-29 16:25] LABS: ABSOLUTE BASOPHILS # (AUTO) 0.1 10^3/uL (0.0-0.2); ABSOLUTE EOSINOPHILS # (AUTO) 0.5 10^3/uL (0.0-0.6); ABSOLUTE LYMPHOCYTES (AUTO) 2.1 10^3/uL (0.5-4.7); ABSOLUTE MONOCYTES (AUTO) 1.1 10^3/uL (0.1-1.4); BASOPHILS % (AUTO) 0.5 % (0-2); EOSINOPHILS % (AUTO) 4.9 % (0-6); HEMATOCRIT 41.5 % (37.9-51.0); HEMOGLOBIN 13.9 g/dL (13.5-17.0); LYMPHOCYTES % (AUTO) 21.3 % (13-45); MEAN CORPUSCULAR HGB CONC 33.4 g/dL (32.0-36.0); MEAN CORPUSCULAR VOLUME 84 fl (80-97); MONOCYTES % (AUTO) 11.3 % (3-13); PLATELET COUNT 306 10^3/uL (150-450); RED BLOOD COUNT 4.96 10^6/uL (4.35-5.55); TOTAL CELLS COUNTED % (AUTO) 100 %; WHITE BLOOD COUNT 9.7 10^3/uL (4.0-10.5)
--- NOTE | 2020-03-29 16:25 | RADIOLOGY REPORT (SQ) ---
EXAM DESCRIPTION: HAND LEFT 3 VIEWS IMAGES COMPLETED DATE/TIME: 03/29/2020 4:17 pm REASON FOR STUDY: swelling of left hand [id number], worse w/ time COMPARISON: 11/25/2017. EXAM PARAMETERS: NUMBER OF VIEWS: Three views. TECHNIQUE: AP, lateral and oblique radiographic images acquired of the left hand. LIMITATIONS: None. FINDINGS: MINERALIZATION: Normal. BONES: No acute fracture or dislocation. No worrisome bone lesions. Degenerative changes at the 1st c arpometacarpal joint with sclerosis and osteophytes. JOINTS: No erosions. No tasia-articular osteopenia. No chondrocalcinosis. SOFT TISSUES: No swelling. No calcifications. OTHER: No other significant finding. IMPRESSION: CHRONIC DEGENERATIVE CHANGES AT THE BASE OF THE THUMB. NO OTHER SIGNIFICANT FINDINGS. TECHNICAL DOCUMENTATION: JOB ID: [id number] 2010 [employer]- All Rights Reserved Reading location - IP/workstation name: [email or web address]
--- NOTE | 2020-03-29 16:26 | RADIOLOGY REPORT (SQ) ---
EXAM DESCRIPTION: CHEST SINGLE VIEW IMAGES COMPLETED DATE/TIME: 03/29/2020 4:17 pm REASON FOR STUDY: Asymptomatic hypertensive urgency COMPARISON: 11/25/2017. EXAM PARAMETERS: NUMBER OF VIEWS: One view. TECHNIQUE: Single frontal radiographic view of the chest acquired. RADIATION DOSE: NA LIMITATIONS: None. FINDINGS: LUNGS AND PLEURA: No opacities, masses or pneumothorax. No pleural effusion. MEDIASTINUM AND HILAR STRUCTURES: No masses. Contour normal. HEART AND VASCULAR STRUCTURES: Heart normal in size. Normal vasculature. BONES: No acute findings. HARDWARE: None in the chest. OTHER: No other significant finding. IMPRESSION: NO ACUTE RADIOGRAPHIC FINDING IN THE CHEST. TECHNICAL DOCUMENTATION: JOB ID: [id number] 2010 [employer]- All Rights Reserved Reading location - IP/workstation name: [email or web address]
[2020-03-29 16:44] LABS: ALBUMIN 3.9 g/dL (3.5-5.0); ALKALINE PHOSPHATASE 87 U/L (38-126); ANION GAP 8 (5-19); ASPARTATE AMINO TRANSFERASE 23 U/L (17-59); BILIRUBIN,DIRECT 0.2 mg/dL (0.0-0.4); BILIRUBIN,TOTAL 0.4 mg/dL (0.2-1.3); BLOOD UREA NITROGEN 12 mg/dL (7-20); CALCIUM 8.9 mg/dL (8.4-10.2); CARBON DIOXIDE 25 mmol/L (22-30); CHLORIDE 107 mmol/L (98-107); GLUCOSE 99 mg/dL (75-110); TOTAL PROTEIN 6.9 g/dL (6.3-8.2)
--- NOTE | 2020-03-29 17:49 | EKG REPORT ---
SEVERITY:- ABNORMAL ECG - SINUS RHYTHM LVH WITH SECONDARY REPOLARIZATION ABNORMALITY PROLONGED QT INTERVAL : Confirmed by: Letty José 29-Mar-2020 17:49:28
[2020-03-29] MEDS ORDERED: LISINOPRIL 10 MG TABLET PO ONE (18:56)
[2020-03-29] MEDS ORDERED: SULFAMETHOXAZOLE/TRIMETHOPRIM 800-160 MG TABLET PO ONE (19:02)
--- NOTE | 2020-03-29 19:03 | ER Document Report ---
ED General - General Chief Complaint: Hand Swelling Stated Complaint: HAND SWELLING Time Seen by Provider: 03/29/20 15:42 Primary Care Provider: CLEMENTE JEFFERS PA-C [Primary Care Provider] - Follow up as needed TRAVEL OUTSIDE OF THE [place] IN LAST 30 DAYS: No - HPI Notes: Patient is a 49-year-old male presents emergency department for evaluation of increased redness and swelling on his third finger of his left hand, swelling and to his hand. He states that a little over a month ago he got a case of poison oak. He was treated, things improved. Several days ago he noticed bl istering, then they became pus filled, the swelling became worse. He went to a primary care clinic, where they started him on mupirocin and clindamycin. He states that has not really improved, so he was sent here for further evaluation. The patient denies any fevers or chills. No nausea or vomiting. He states he does have some pain at some of the lesions, but really states that overall the pain is not significant in his finger. Patient also notes that his blood pressure is elevated. He is like taking his lisinopril. He states that normally his blood pressure runs much better than this. He denies any difficulty seeing, speaking, swallowing. Moving his arms and legs without difficulty. No chest pain or shortness of breath. He is still urinating normally. - Related Data Allergies/Adverse Reactions: amoxicillin [Amoxicillin] Allergy (Verified 03/29/20 15:40) Penicillins Allergy (Verified 03/29/20 15:40) Home Medications: Clindamycin, lisinopril, Bactroban Past Medical History - General Information source: Patient - Social History Smoking Status: Never Smoker Family History: Arthritis, CAD, CVA, Hyperlipidemia, Hypertension, Malignancy. denies: COPD, DM, Thyroid Disfunction - Past Medical History Cardiac Medical History: Reports: Hx Hypertension Pulmonary Medical History: Denies: Hx Tuberculosis Neurological Medical History: Reports: Hx Migraine Renal/ Medical History: Reports: Hx Kidney Stones. Denies: Hx Peritoneal Dialysis GI Medical History: Reports: Hx Gastroesophageal Reflux Disease Musculoskeletal Medical History: Reports Hx Musculoskeletal Trauma Skin Medical History: Reports Hx Cellulitis, Reports Hx MRSA Psychiatric Medical History: Reports: Hx Anxiety, Hx Depression Traumatic Medical History: Reports: Hx Fractures - Arm, jaw Past Surgical History: Reports: Hx Cardiac Catheterization, Hx Oral Surgery - Fractured jaw plates in jaw, Hx Testicular Surgery - Undescended testicle - Immunizations Immunizations up to date: Yes Hx Diphtheria, Pertussis, Tetanus Vaccination: Yes Review of Systems - Review of Systems Constitutional: No symptoms reported EENT: No symptoms reported Cardiovascular: No symptoms reported Respiratory: No symptoms reported Gastrointestinal: No symptoms reported Genitourinary: No symptoms reported Musculoskeletal: No symptoms reported Skin: See HPI Neurological/Psychological: No symptoms reported Physical Exam - Vital signs Vitals: Temp Pulse Resp BP Pulse Ox 97.8 F 84 20 206/120 H 96 03/29/20 15:12 03/29/20 15:12 03/29/20 15:12 03/29/20 15:12 03/29/20 15:12 - Notes Notes: Vital signs reviewed, please refer to chart. Head is normocephalic, atraumatic. Pupils equal round, reactive to light. Neck is supple without meningismus. Heart is regular rate and rhythm. Lungs are clear to auscultation bilaterally. Abdomen is soft, nontender, normoactive bowel sounds throughout. Extremities without cyanosis, clubbing. Posterior calves are nontender. Peripheral pulses are equal. Examination of the left hand yields a moderate amount of edema about the left third finger and into the dorsum of the hand. He has associated calor and mild rubor, but the rubor is limited to surrounding lesions of the third digit. On the dorsal aspect of the hand, scattered over all 3 phalanges, are crusting and purulent lesions, consistent with possible impetiginous infection. Capillary refill is brisk, sensation is intact, full range of motion at the wrist in all 3 joints of the finger. Patient also has a healing crusting lesion noted to the anterior abdomen, with some minimal surrounding erythema that appears to be reactive. It is approximately 2 and half centimeters in diameter, circular, without any surrounding tenderness. Course - Re-evaluation Re-evalutation: 03/29/20 19:06 Patient presents emergency department for evaluation. He was initially seen through triage. He had extensive laboratory investigations which were all found to be unremarkable. The patient's blood pressure is elevated here. We talked at length about this and how this increases the chance of heart attack, stroke, chronic kidney disease. He voiced understanding, states he takes his medications as prescribed. He was given his dose of lisinopril here. I did clean off the area of his finger with an alcohol swab and obtained a wound culture. This was sent, as the patient denies any known history of MRSA. My hope was to double cover this patient for staff with Bactrim as well as Keflex, but the patient reports anaphylaxis to penicillin, so Keflex was left out of this equation. I started him on Bactrim. A proper wound care was explained to the patient. He has been using hydrogen peroxide, he was told to discontinue this. He is to keep the area clean with plain soap and water. Bandage and protected from further contamination. Otherwise he can continue to use the Bactroban as prescribed. He is to discontinue the clindamycin. I will start him on the Bactrim, he is given his first dose here. He is to follow-up with his primary care provider in regards to his elevated blood pressure as well. He voiced understanding. He is to return to the ED with worsening or new concerning symptoms of any sort. - Vital Signs Vital signs: Temp Pulse Resp BP Pulse Ox 97.8 F 84 18 176/115 H 97 03/29/20 15:12 03/29/20 15:12 03/29/20 19:17 03/29/20 19:17 03/29/20 19:17 - Laboratory Results Result Diagrams: 03/29/20 16:02 03/29/20 16:02 Critical Laboratory Results Reviewed: No Critical Results - Radiology Results Radiology Results Interpreted: 03/29/20 19:07 Chest X-Ray 03/29/20 15:47 IMPRESSION: NO ACUTE RADIOGRAPHIC FINDING IN THE CHEST. Hand X-Ray 03/29/20 15:47 IMPRESSION: CHRONIC DEGENERATIVE CHANGES AT THE BASE OF THE THUMB. NO OTHER SIGNIFICANT FINDINGS. Critical Radiology Results Reviewed: No Critical Results Discharge - Discharge Clinical Impression: Impetigo Condition: Stable Disposition: HOME, SELF-CARE Instructions: Bactroban Ointment ([facility]), Impetigo ([facility]), Trimethoprim-Sulfa ([facility]) Additional Instructions: Please continue to keep wounds clean with soap and water. Stop the clindamycin, start the Bactrim as directed. Use the Bactroban cream as directed. Follow-up with your primary care provider next week. Your blood pressure was elevated here, this should be followed up with primary care as well. If you develop fevers, vomiting, increased redness or swelling, increased pain, or any other new or concerning symptoms, please return immediately to the emergency department for evaluation. Prescriptions: Sulfamethoxazole/Trimethoprim [Bactrim Ds Tablet] 1 each PO BID #19 tablet Forms: Elevated Blood Pressure, Return to Work Referrals: CLEMENTE JEFFERS PA-C [Primary Care Provider] - Follow up as needed
[2020-03-29 19:24] VITALS: BP 176/115
== END 2020-03-29 19:24 | disposition home or self-care (01) ==
LOC: ER 15:06
DX: L01.00 Impetigo, unspecified (principal); M79.89 Other specified soft tissue disorders; I10 Essential (primary) hypertension; Z88.0 Allergy status to penicillin; Z87.442 Personal history of urinary calculi; Z86.14 Personal history of Methicillin resistant Staphylococcus aureus infection
CPT/HCPCS: 36415; 71045; 80053; 84484; 85025; 87070; 87077; 87205; 93005; 93010; 99285